=== PATIENT | male | born 1960 | race Caucasian/White ===

== ENCOUNTER 2018-11-11 10:32 | Inpatient (IN) | payer OTHER ==
[2018-11-10 15:37] VITALS: BMI 21.0
[~2018-11-11] VITALS: Ht 180.3 cm; Wt 76.1 kg
[~2018-11-11 10:32] MED LIST: CEFAZOLIN 2 GM/50 ML (PMX) 50 ML IVPB ONE; SOD CHLORIDE 0.9% 1,000 ML IV SCH
[2018-11-11] MEDS ORDERED: FOLI-49 PO (11:06)
[2018-11-11] MEDS ORDERED: IVAB5TAB PO (11:06)
[2018-11-11] MEDS ORDERED: DIGO125T PO (11:06)
[2018-11-11] MEDS ORDERED: ASPI-817 PO (11:06)
[2018-11-11] MEDS ORDERED: AMIO200T4 PO (11:06)
[2018-11-11] MEDS ORDERED: ATOR20TA65 PO (11:06)
[2018-11-11] MEDS ORDERED: FURO40TA4 PO (11:06)
[2018-11-11] MEDS ORDERED: CARV3.1260 PO (11:06)
[2018-11-11] MEDS ORDERED: MAGN400T27 PO (11:06)
[2018-11-11 11:07] VITALS: BP 104/58; PULSE 83; RESP 16
[2018-11-11] MEDS ORDERED: HYDROmorphONE 1 MG/ML SYG IV ONE (13:30)
[2018-11-11 17:20] VITALS: BP 115/69; PULSE 78; RESP 18
[2018-11-11] MEDS: LACTATED RINGER'S 1,000 ML IV SCH (18:02)
[2018-11-11] MEDS: morphine 4 MG/ML VIAL IV PRN ×2 (18:31→23:10)
[2018-11-11 19:15] VITALS: BP 95/61; PULSE 78; RESP 18
[2018-11-11] MEDS: MAGNESIUM OXIDE 400 MG TAB PO SCH (21:48)
[2018-11-11] MEDS: FOLIC ACID 1 MG TAB PO SCH (21:49)
[2018-11-11] MEDS: FUROSEMIDE 40 MG TAB PO SCH (21:50)
[2018-11-11] MEDS: AMIODARONE 200 MG TAB PO SCH (21:50)
[2018-11-11] MEDS: DIGOXIN 0.125 MG TAB PO SCH (21:54)
[2018-11-11] MEDS: IVABRADINE HCL 5 MG TABLET PO SCH (21:54)
[2018-11-12] VITALS (28 sets, daily range): BP systolic 75–102; BP diastolic 47–64; PULSE 72–83; RESP 10–20; Ht 180.3 cm; Wt 76.1 kg
[2018-11-12] MEDS: LACTATED RINGER'S 1,000 ML IV SCH ×2 (02:45→03:59)
[2018-11-12] MEDS: morphine 4 MG/ML VIAL IV PRN ×4 (04:03→22:16)
[2018-11-12] MEDS ORDERED: CEFAZOLIN 1 GM INJ ONE (07:00)
[2018-11-12] MEDS: FUROSEMIDE 40 MG TAB PO SCH (09:00)
[2018-11-12] MEDS: IVABRADINE HCL 5 MG TABLET PO SCH ×2 (09:00→21:00)
[2018-11-12] MEDS: AMIODARONE 200 MG TAB PO SCH (09:00)
[2018-11-12] MEDS: FOLIC ACID 1 MG TAB PO SCH (09:00)
[2018-11-12] MEDS: MAGNESIUM OXIDE 400 MG TAB PO SCH (09:00)
--- NOTE | 2018-11-12 12:24 | PREAC ---
Date/Time of Note Date/Time of Note DATE: 11/12/18 TIME: 12:21 Anesthesia Eval and Record Evaluation Time Pre-Procedure Interview DATE: 11/12/18 TIME: 12:21 Age 58 Sex male NPO: 8 hrs Preoperative diagnosis inguinal hernia right Planned procedure right hernia repair Past Medical History Past Medical History: Includes Cardio: PPM/AICD, CHF, Other (cardiomyopathy 25-30 % talked to Dr pologosstom for clearance, said its a big hernia, needs to br done) Surgery & Anesthesia Issues No known issue Meds Anticoagulation: No Beta Alisa within 24 hr: No Reason Beta Alisa not given: Pt. not on B-Alisa Reported Medications Ivabradine HCl (Corlanor) 5 Mg Tablet, 5 MG PO BID 11/11/18 Atorvastatin Calcium (Atorvastatin Calcium) 20 Mg Tablet, 20 MG PO QHS 11/11/18 Carvedilol* (Carvedilol*) 3.125 Mg Tablet, 3.125 MG PO BID 11/11/18 Furosemide* (Furosemide*) 40 Mg Tablet, 40 MG PO DAILY 11/11/18 Folic Acid* (Folic Acid*) 1 Mg Tablet, 1 MG PO DAILY 11/11/18 Digoxin* (Digitek*) 125 Mcg Tablet, 0.125 MG PO DAILY 11/11/18 Magnesium Oxide* (Mag-Oxide*) 400 Mg Tablet, 400 MG PO DAILY 11/11/18 Amiodarone Hcl* (Amiodarone Hcl*) 200 Mg Tablet, 200 MG PO DAILY 11/11/18 Discontinued Reported Medications Aspirin* (Aspirin* EC) 81 Mg Tablet.dr 81 MG PO DAILY 11/11/18 Current Medications Lactated Ringer's 1,000 ml @ 100 mls/hr Q10H IV Last administered on 11/12/18at 03:59; Admin Dose 100 MLS/HR; Start 11/11/18 at 16:45 Morphine Sulfate (morphine) 4 mg Q4H PRN IV severe pain 7-10 Last administered on 11/12/18at 08:10; Admin Dose 4 MG; Start 11/11/18 at 18:00 Amiodarone HCl (Cordarone) 200 mg DAILY PO Last administered on 11/11/18at 21:50; Admin Dose 200 MG; Start 11/11/18 at 20:30 Folic Acid (Folic Acid) 1 mg DAILY PO Last administered on 11/11/18at 21:49; Admin Dose 1 MG; Start 11/11/18 at 20:30 Furosemide (Lasix) 40 mg DAILY PO Last administered on 11/11/18at 21:50; Admin Dose 40 MG; Start 11/11/18 at 20:30 Magnesium Oxide (Mag-Ox 400) 400 mg DAILY PO Last administered on 11/11/18at 21:48; Admin Dose 400 MG; Start 11/11/18 at 20:30 Ivabradine (Corlanor) 5 mg BID PO ; Start 11/11/18 at 22:00 Digoxin (Digoxin) 0.125 mg DAILY@1300 PO ; Start 11/11/18 at 22:00 Meds reviewed: Yes Allergies Coded Allergies: No Known Allergy (Unverified , 11/11/18) Allergies Reviewed: Yes Labs/Studies Labs Reviewed: Reviewed by anesthesiologist Result Diagram: 11/11/18 1110 11/11/18 1110 test: N/A Studies: ECG (sb, first degree block AICD) Pre-procedure Exam Last vitals Vital Signs Date Temp Pulse Resp B/P (MAP) Pulse Ox O2 O2 Flow FiO2 Time Delivery Rate 11/12/18 98.2 76 16 95/57 (70) 100 Room Air 07:37 Airway: Adequate mouth opening Mallampati: Mallampati I Teeth: Normal Lung: Normal Heart: Normal ASA Physical Status ASA physical status: 3 Emergency: None Planned Anesthetic General/MAC: ETT Planned Pain Management Single shot nerve block Pre-operative Attestations Prior to commencing anesthesia and surgery, the patient was re-evaluated, there was verification of: *The patient's identity *The results of appropriate recent lab work and preoperative vital signs *The above evaluation not changing prior to induction *Anesthetic plan, risk benefits, alternative and complications discussed with patient/family; questions answered; patient/family understands, accepts and wishes to proceed. RIANA GARCIA MD Nov 12, 2018 12:24
[2018-11-12] MEDS ORDERED: MEPERIDINE 25 MG INJ IV PRN (12:30)
[2018-11-12] MEDS ORDERED: LABETALOL HCL 20MG INJ IV PRN (12:30)
[2018-11-12] MEDS ORDERED: hydrALAzine 20 MG INJ IV PRN (12:30)
[2018-11-12] MEDS ORDERED: EPHEDrine SULFATE 50 MG/5 ML SYG IV PRN (12:30)
[2018-11-12] MEDS ORDERED: DIPHENHYDRAMINE 50 MG INJ IV PRN (12:30)
[2018-11-12] MEDS ORDERED: ONDANSETRON 4 MG INJ IV PRN (12:30)
[2018-11-12] MEDS ORDERED: HYDROmorphONE 1 MG/5 ML IV SYRINGE IV PRN ×3 (12:30)
[2018-11-12] MEDS ORDERED: ROCURONIUM 50 MG INJ ONE ×2 (12:47→13:29)
[2018-11-12] MEDS ORDERED: MIDAZOLAM 1 MG/ML 2 ML INJ ONE (12:47)
[2018-11-12] MEDS ORDERED: METOCLOPRAMIDE 10 MG INJ ONE (12:47)
[2018-11-12] MEDS ORDERED: ROPIVACAINE 0.2% 20 ML VIAL ONE (12:47)
[2018-11-12] MEDS ORDERED: ONDANSETRON 4 MG INJ ONE (12:47)
[2018-11-12] MEDS ORDERED: ETOMIDATE 20 MG INJ ONE (12:47)
[2018-11-12] MEDS ORDERED: FENTAnyl 50 MCG/ML VIAL ONE (12:47)
[2018-11-12] MEDS ORDERED: PHENYLephrine 10 MG INJ ONE (12:54)
[2018-11-12] MEDS ORDERED: LIDOCAINE 1% (MPF) 30 ML INJ ONE (14:28)
[2018-11-12] MEDS ORDERED: POLYMYXIN/BACITRACIN 1L IRRIG ONE (14:28)
[2018-11-12] MEDS ORDERED: KETOROLAC 30 MG INJ ONE (14:46)
[2018-11-12] MEDS ORDERED: GLYCOPYRROLATE 0.4 MG INJ ONE (14:46)
[2018-11-12] MEDS ORDERED: NEOSTIGMINE 3 MG/3 ML SYRINGE ONE (14:46)
--- NOTE | 2018-11-12 15:34 | OPR ---
Date/Time of Note Date/Time of Note DATE: 11/12/18 TIME: 15:32 Operative Report Procedure Date: Nov 12, 2018 Preoperative Diagnosis right inguinal hernia, incarcerated, very large Postoperative Diagnosis same, encroachment into dartos fascia and panpiniform plexus Operation/Procedure Performed right inguinal hernia repair with mesh, incarcerated without obstruction removal of spermatic cord lesion reconstruction of scrotum Surgeon see signature line Speech Communication Professor none Anesthesia Type: general Estimated Blood Loss: 10 - 50 ml's Transfusion none Specimen lipoma of the cord Grafts/Implants prolene plug mesh and macroporous prolene soft mesh Complications none Pt Condition Post Procedure: guarded Disposition: PACU Indications Patient with a very large inguinal hernia at the right side that has been causing progressively worsening pain and discomfort. He has a history of CHF and due to his cardiac risks has been putting off surgery for a long time but the pain is getting severe and he would now like to have it repaired. Procedure Description The patient was laid supine on the operating room table. Venodyne boots were applied. Timeout was conducted. Antibiotics were administered. The groin was prepped and draped in sterile manner. A 7 cm incision was made along the skin lines 2[address] distally from the anterior superior iliac spine to the patient's pubic tubercle on the right side. The incision was made with a scalpel and then deepened with cautery through Camper's and Pablito's fascia until the external oblique aponeurosis was encountered. A rubia was made along the center of the external oblique upon neurosis with the blade and thereafter the Metzenbaum scissors were used to open the external ring from the pubic tubercle up towards the anterior superior iliac spine. The ilioinguinal nerve was identified and moved out of the operative field sway. The surgeon then used blunt dissection with a sponge stick to isolate the cord structures from surrounding fascia and thereafter encircled the cord structures with a Cecelia drain. The Cecelia drain was used to retract the cord structures and the ileal inguinal nerve out of the operative field. The cord was examined and along the lipoma was noted. Excision of lipoma of the cord was carried out. The hernia sac was then identified and noted to be adherent to the cremasteric fibers and the spermatic cord. The pimpiniform plexus was also adhered to it and a few branches had to be sacrificied by ligating it in order to safely resect it off of the hernia sac. The hernia sac distally was stuck in the scrotum and therefore Darto's fascia had to be incised from the groin in order to allow for reduction of the hernia out of the sac. Using electrocautery the hernia sac was dissected away from the cord structures. The hernia sac was thereafter opened and inspected there was no bowel or anything suspicious inside it. All hernia sac content was reduced back into the peritoneum and thereafter high ligation of the sac was carried out with a 0 silk suture and the hernia sac was reduced into the peritoneal cavity. The fascia was then inspected and dressed lateral to the epigastric vessels a indirect hernia defect was identified. The fascial defect was closed with interrupted 0 Vicryl sutures and reinforced with a Prolene plug mesh. Interrupted Vicryl sutures were used to affix the petals of the plug to the inner surface of the conjoint tendon at the area of the fascial defect. Once the fascial defect was closed patch mesh was brought onto the field. This was a macroporous Vicryl mesh and it was cut to appropriate size. The medial edge of the mesh was affixed to the patient's right pubic periosteum about 1 cm to the area of the tubercle. Afterwards a running 0 Vicryl suture was used to affix the superior edge of the mesh to the patient's conjoint tendon from the pubic tubercle laterally toward the anterior superior iliac spine. A second V icryl suture was then used to affix the patch mesh to the shelving edge of the ileal inguinal ligament from the area of the pubic tubercle toward the anterior superior iliac spine using running 0 Vicryl suture. The spermatic cord was placed in between the 2 fish tails of the patch mesh and the 2 fishtails were thereafter affixed to each other using an interrupted suture taking care to ensure there is no impingement upon the spermatic cord. Given the large size of the hernia, it was noted to be impinging along the Dartos fascia. The Darto's fascia was incised and it now had to be again closed. 2-0 Vicryl sutures were used to reconstruct the scrotum in two layers by reapproximating Darto's fascia and great care was taken to ensure cord structures were not entrapped. The wound was then irrigated with saline. The cord structures and ilioinguinal nerve were then placed back into their anatomic position. The external oblique fascia was thereafter reapproximated using running 0 Vicryl suture. The subcutaneous t issue was then reapproximated using 2-0 Vicryl sutures. The skin was then closed with 4-0 Monocryl and Dermabond dressing was applied after wet and dry dressings were applied to the wound. At the end of the procedure I confirmed that the patient's testicles are in the appropriate position. The patient was after weaned from anesthesia and disposition to the postanesthesia care unit in stable condition. All instrument and needle and sponge counts were correct at the end of the procedure 2. PETRA WOLFF Nov 12, 2018 15:34
[2018-11-12] MEDS ORDERED: HYDROmorphONE 1 MG/ML SYG IV PRN (16:00)
[2018-11-12] MEDS ORDERED: EPHEDrine 25 MG/5 ML SYG IV PRN (16:30)
[2018-11-12] MEDS: DIGOXIN 0.125 MG TAB PO SCH (18:15)
--- NOTE | 2018-11-12 18:38 | HP ---
Date/Time of Note Date/Time of Note DATE: 11/12/18 TIME: 18:36 Assessment/Plan VTE Prophylaxis Risk score (from Nsg)>0 risk: 3 SCD applied (from Nsg): Yes Lines/Catheters IV Catheter Type (from Nrsg): Peripheral IV Assessment/Plan Assessment/Plan right inguinal hernia, incarcerated, very large right inguinal hernia repair with mesh, incarcerated without obstruction sp ICD Placement Result Diagram: 11/11/18 11111/11/18 1110 HPI/ROS Admit Date/Time Admit Date/Time Nov 11, 2018 at 10:32 PMH/Family/Social Past Medical History Medical History: congestive heart failure Medications Current Medications Lactated Ringer's 1,000 ml @ 100 mls/hr Q10H IV Last administered on 11/12/18at 03:59; Admin Dose 100 MLS/HR; Start 11/11/18 at 16:45 Morphine Sulfate (morphine) 4 mg Q4H PRN IV severe pain 7-10 Last administered on 11/12/18 18:16; Admin Dose 4 MG; Start 11/11/18 at 18:00 Amiodarone HCl (Cordarone) 200 mg DAILY PO Last administered on 11/11/18 21:50; Admin Dose 200 MG; Start 11/11/18 at 20:30 Folic Acid (Folic Acid) 1 mg DAILY PO Last administered on 11/11/18 21:49; Admin Dose 1 MG; Start 11/11/18 at 20:30 Furosemide (Lasix) 40 mg DAILY PO Last administered on 11/11/18 21:50; Admin Dose 40 MG; Start 11/11/18 at 20:30 Magnesium Oxide (Mag-Ox 400) 400 mg DAILY PO Last administered on 11/11/18at 21:48; Admin Dose 400 MG; Start 11/11/18 at 20:30 Ivabradine (Corlanor) 5 mg BID PO ; Start 11/11/18 at 22:00 Digoxin (Digoxin) 0.125 mg DAILY@1300 PO Last administered on 11/12/18 18:15; Admin Dose 0.125 MG; Start 11/11/18 at 22:00 Acetaminophen/ Hydrocodone Bitart ([place] (5/325)) 1 tab Q4H PRN PO MODERATE PAIN LEVEL 4-6; Start 11/12/18 at 16:00 Acetaminophen/ Hydrocodone Bitart ([place] (10/325)) 1 tab Q4H PRN PO MODERATE PAIN LEVEL 4-6; Start 11/12/18 at 16:00 Hydromorphone HCl (Dilaudid) 1 mg Q4H PRN IV SEVERE PAIN LEVEL 7-10; Start 11/12/18 at 16:00 Ephedrine Sulfate 5 mg PACU ORDER PRN IV BLOOD PRESSURE SUPPORT Last administered on 11/12/18at 16:18; Admin Dose 5 MG; Start 11/12/18 at 16:30; Stop 11/12/18 at 22:00 Atorvastatin Calcium (Lipitor) 20 mg QHS PO ; Start 11/12/18 at 21:00; Status UNV Coded Allergies: No Known Allergy (Unverified , 11/11/18) Past Surgical History Past Surgical Hx: other (sp ICD PLACEMENT) Social History Smoking Status: Former smoker Exam/Review of Systems Vital Signs Vitals Vital Signs Date Temp Pulse Resp B/P (MAP) Pulse Ox O2 O2 Flow FiO2 Time Delivery Rate 11/12/18 98.2 78 20 92/52 (65) 95 Nasal 2.0 18:02 Cannula Intake and Output 11/11/18 11/11/18 11/12/18 1414:59 22:59 06:59 IntakeIntake Total 1100 ml 1340 ml OutputOutput Total 1 ml BalanceBalance 1100 ml 1339 ml Exam Constitutional: alert Psych: nl mood/affect Head: atraumatic Eyes: EOMI ENMT: nl external ears & nose Respiratory: diminished breath sounds Cardiovascular: nl pulses, other Gastrointestinal: nl liver, spleen, non-tender Musculoskeletal: nl extremities to inspection MARY LOU MURRIETA Nov 12, 2018 18:38
[2018-11-12] MEDS: ATORVASTATIN 20 MG TAB PO SCH (20:36)
[2018-11-13] VITALS (12 sets, daily range): BP systolic 90–102; BP diastolic 50–64; PULSE 84–100; RESP 18–20
[2018-11-13] MEDS: morphine 4 MG/ML VIAL IV PRN ×6 (02:22→22:28)
--- NOTE | 2018-11-13 07:13 | PAC ---
Date/Time of Note Date/Time of Note DATE: 11/13/18 TIME: 07:12 Post-Anesthesia Notes Post-Anesthesia Note Last documented vital signs Vital Signs Date Temp Pulse Resp B/P (MAP) Pulse Ox O2 O2 Flow FiO2 Time Delivery Rate 11/13/18 98.4 88 18 96/57 (70) 96 04:35 11/12/18 Nasal 2.0 18:02 Cannula Activity: WNL Respiratory function: WNL Cardiovascular function: WNL Mental status: Baseline Pain reasonably controlled: Yes Hydration appropriate: Yes Nausea/Vomiting absent: No RIANA GARCIA MD Nov 13, 2018 07:13
[2018-11-13] MEDS: FOLIC ACID 1 MG TAB PO SCH (08:36)
[2018-11-13] MEDS: IVABRADINE HCL 5 MG TABLET PO SCH ×2 (08:36→21:10)
[2018-11-13] MEDS: MAGNESIUM OXIDE 400 MG TAB PO SCH (08:36)
[2018-11-13] MEDS: FUROSEMIDE 40 MG TAB PO SCH (08:36)
[2018-11-13] MEDS: AMIODARONE 200 MG TAB PO SCH (08:37)
[2018-11-13] MEDS: HYDROCODONE/APAP (10/325) TAB PO PRN ×3 (11:34→21:10)
[2018-11-13] MEDS: DIGOXIN 0.125 MG TAB PO SCH (12:19)
[2018-11-13] MEDS: DOCUSATE SODIUM 100 MG CAP PO SCH (21:10)
[2018-11-13] MEDS: ATORVASTATIN 20 MG TAB PO SCH (21:10)
[2018-11-14] VITALS (11 sets, daily range): BP systolic 95–115; BP diastolic 51–67; PULSE 80–92; RESP 18–21
[2018-11-14] MEDS: morphine 4 MG/ML VIAL IV PRN ×4 (03:44→18:25)
[2018-11-14] MEDS: HYDROCODONE/APAP (10/325) TAB PO PRN ×2 (06:55→12:11)
[2018-11-14] MEDS: FUROSEMIDE 40 MG TAB PO SCH (08:26)
[2018-11-14] MEDS: MAGNESIUM OXIDE 400 MG TAB PO SCH (08:32)
[2018-11-14] MEDS: FOLIC ACID 1 MG TAB PO SCH (08:32)
[2018-11-14] MEDS: DOCUSATE SODIUM 100 MG CAP PO SCH ×2 (08:32→21:36)
[2018-11-14] MEDS: IVABRADINE HCL 5 MG TABLET PO SCH ×2 (08:33→21:36)
[2018-11-14] MEDS: AMIODARONE 200 MG TAB PO SCH (08:33)
[2018-11-14] MEDS: DIGOXIN 0.125 MG TAB PO SCH (12:12)
--- NOTE | 2018-11-14 18:26 | PN ---
Date/Time of Note Date/Time of Note DATE: 11/14/18 TIME: 18:24 Assessment/Plan VTE Prophylaxis Risk score (from Nsg)>0 risk: 1 SCD applied (from Nsg): Yes Pharmacological prophylaxis: NA/contraindicated Pharm contraindication: surgical contra Lines/Catheters IV Catheter Type (from Nrsg): Saline Lock Assessment/Plan Hospital Course Patient complains of pain, continues [place] and morphine as needed for breakthrough pain, patient was able to move to the chair with RN help, Continue current care, will obtain PT evaluation. Assessment/Plan - Large incarcerated right inguinal hernia, status post right inguinal hernia repair with mesh, removal of spermatic cord cord lesion and reconstruction of scrotum by Dr. Villalobos. Continue [place] and morphine as needed for pain and Zofran as needed for nausea. -Congestive heart failure, continue Lasix and Coreg -Status post recent permanent pacemaker insertion by Dr. Alba -Hyperlipidemia, continue statin Further recommendations based on clinical course. Plan of care discussed with Dr. Mckay. Result Diagram: 11/14/18 0520 11/14/18 0520 Results 24hrs Laboratory Tests Test 11/14/18 05:20 White Blood Count 9.9 # Red Blood Count 3.71 L Hemoglobin 10.9 L Hematocrit 34.6 L Mean Corpuscular Volume 93.3 Mean Corpuscular Hemoglobin 29.4 Mean Corpuscular Hemoglobin Concent 31.5 L Red Cell Distribution Width 16.7 H Platelet Count 241 Mean Platelet Volume 8.6 Immature Granulocytes % 0.500 H Neutrophils % 75.6 Lymphocytes % 9.0 L Monocytes % 13.3 H Eosinophils % 1.1 Basophils % 0.5 Nucleated Red Blood Cells % 0.0 Immature Granulocytes # 0.050 H Neutrophils # 7.5 Lymphocytes # 0.9 Monocytes # 1.3 H Eosinophils # 0.1 Basophils # 0.1 Nucleated Red Blood Cells # 0.0 Sodium Level 137 Potassium Level 4.3 Chloride Level 97 Carbon Dioxide Level 25 Anion Gap 15 #H Blood Urea Nitrogen 19 Creatinine 0.99 Est Glomerular Filtrat Rate mL/min > 60 Glucose Level 97 Calcium Level 8.5 Exam/Review of Systems Exam Vitals Vital Signs Date Temp Pulse Resp B/P (MAP) Pulse Ox O2 O2 Flow FiO2 Time Delivery Rate 11/14/18 84 16:01 11/14/18 98.4 20 97/54 (68) 95 15:53 11/12/18 Nasal 2.0 18:02 Cannula Intake and Output 11/13/18 11/13/18 11/14/18 1515:00 23:00 07:00 IntakeIntake Total 700 ml 450 ml OutputOutput Total 450 ml 1200 ml BalanceBalance 250 ml -750 ml Constitutional: alert, oriented Respiratory: clear to auscultation Cardiovascular: regular rate and rhythm, other (Left chest PPM) Gastrointestinal: soft, non-tender Genitourinary - Male: other (Status post right inguinal hernia repair) Extremities: normal pulses Neurological: nl mental status Skin: nl turgor Results Results 24hrs Laboratory Tests Test 11/14/18 05:20 White Blood Count 9.9 # Red Blood Count 3.71 L Hemoglobin 10.9 L Hematocrit 34.6 L Mean Corpuscular Volume 93.3 Mean Corpuscular Hemoglobin 29.4 Mean Corpuscular Hemoglobin Concent 31.5 L Red Cell Distribution Width 16.7 H Platelet Count 241 Mean Platelet Volume 8.6 Immature Granulocytes % 0.500 H Neutrophils % 75.6 Lymphocytes % 9.0 L Monocytes % 13.3 H Eosinophils % 1.1 Basophils % 0.5 Nucleated Red Blood Cells % 0.0 Immature Granulocytes # 0.050 H Neutrophils # 7.5 Lymphocytes # 0.9 Monocytes # 1.3 H Eosinophils # 0.1 Basophils # 0.1 Nucleated Red Blood Cells # 0.0 Sodium Level 137 Potassium Level 4.3 Chloride Level 97 Carbon Dioxide Level 25 Anion Gap 15 #H Blood Urea Nitrogen 19 Creatinine 0.99 Est Glomerular Filtrat Rate mL/min > 60 Glucose Level 97 Calcium Level 8.5 Medications Medication Current Medications Morphine Sulfate (morphine) 4 mg Q4H PRN IV severe pain 7-10 Last administered on 11/14/18at 14:28; Admin Dose 4 MG; Start 11/11/18 at 18:00 Amiodarone HCl (Cordarone) 200 mg DAILY PO Last administered on 11/14/18at 08:33; Admin Dose 200 MG; Start 11/11/18 at 20:30 Folic Acid (Folic Acid) 1 mg DAILY PO Last administered on 11/14/18at 08:32; Admin Dose 1 MG; Start 11/11/18 at 20:30 Magnesium Oxide (Mag-Ox 400) 400 mg DAILY PO Last administered on 11/14/18 08:32; Admin Dose 400 MG; Start 11/11/18 at 20:30 Ivabradine (Corlanor) 5 mg BID PO Last administered on 11/14/18 08:33; Admin Dose 5 MG; Start 11/11/18 at 22:00 Digoxin (Digoxin) 0.125 mg DAILY@1300 PO Last administered on 11/14/18 12:12; Admin Dose 0.125 MG; Start 11/11/18 at 22:00 Acetaminophen/ Hydrocodone Bitart ([place] (5/325)) 1 tab Q4H PRN PO MODERATE PAIN LEVEL 4-6; Start 11/12/18 at 16:00 Acetaminophen/ Hydrocodone Bitart ([place] (10/325)) 1 tab Q4H PRN PO MODERATE PAIN LEVEL 4-6 Last administered on 11/14/18 12:11; Admin Dose 1 TAB; Start 11/12/18 at 16:00 Hydromorphone HCl (Dilaudid) 1 mg Q4H PRN IV SEVERE PAIN LEVEL 7-10; Start 11/12/18 at 16:00 Atorvastatin Calcium (Lipitor) 20 mg QHS PO Last administered on 11/13/18 21:10; Admin Dose 20 MG; Start 11/12/18 at 21:00 Miscellaneous Information Patients own medicat... BID@10,16 XX ; Start 11/13/18 at 10:00 Furosemide (Lasix) 40 mg DAILY PO ; Start 11/14/18 at 09:00 Docusate Sodium (Colace) 100 mg BID PO Last administered on 11/14/18 08:32; Admin Dose 100 MG; Start 11/13/18 at 21:00 JOSE ANDREW Nov 14, 2018 18:25
[2018-11-14] MEDS: ATORVASTATIN 20 MG TAB PO SCH (21:36)
[2018-11-14] MEDS: LORAZEPAM 2 MG INJ IV PRN (23:44)
[2018-11-15] VITALS (10 sets, daily range): BP systolic 97–113; BP diastolic 58–68; PULSE 79–95; RESP 18–20
[2018-11-15] MEDS: HYDROmorphONE 2 MG/ML SYG IV PRN ×3 (07:22→18:33)
[2018-11-15] MEDS: FOLIC ACID 1 MG TAB PO SCH (08:14)
[2018-11-15] MEDS: MAGNESIUM OXIDE 400 MG TAB PO SCH (08:14)
[2018-11-15] MEDS: DOCUSATE SODIUM 100 MG CAP PO SCH ×2 (08:14→20:35)
[2018-11-15] MEDS: IVABRADINE HCL 5 MG TABLET PO SCH ×2 (08:14→20:35)
[2018-11-15] MEDS: AMIODARONE 200 MG TAB PO SCH (08:15)
[2018-11-15] MEDS: FUROSEMIDE 40 MG TAB PO SCH (08:15)
[2018-11-15] MEDS: morphine 4 MG/ML VIAL IV PRN (10:20)
[2018-11-15] MEDS: BISACODYL (EC) 5 MG TAB PO PRN (10:50)
--- NOTE | 2018-11-15 11:01 | PN ---
Date/Time of Note Date/Time of Note DATE: 11/15/18 TIME: 10:56 Assessment/Plan VTE Prophylaxis Risk score (from Ns)>0 risk: 2 SCD applied (from Ns): Yes Pharmacological prophylaxis: NA/contraindicated Pharm contraindication: surgical contra Lines/Catheters IV Catheter Type (from Nrs): Saline Lock Assessment/Plan Hospital Course Patient with slightly elevated white blood cells will obtain chest x-ray and urinalysis, patient still with great amount of pain continue [place] and morphine for breakthrough pain. Patient's complaints of constipation will start patient on bowel regimen. 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 Assessment/Plan - Large incarcerated right inguinal hernia, status post right inguinal hernia repair with mesh, removal of spermatic cord cord lesion and reconstruction of scrotum by Dr. Villalobos. Continue [place] and morphine as needed for pain and Zofran as needed for nausea. -Congestive heart failure, continue Lasix and Coreg -Status post recent permanent pacemaker insertion by Dr. Alba -Hyperlipidemia, continue statin Further recommendations based on clinical course. Plan of care discussed with Dr. Mckay. Result Diagram: 11/15/1851211/15/18512 Results 24hrs Laboratory Tests Test 11/15/18 05:13 White Blood Count 11.7 H Red Blood Count 3.62 L Hemoglobin 10.6 L Hematocrit 34.0 L Mean Corpuscular Volume 93.9 Mean Corpuscular Hemoglobin 29.3 Mean Corpuscular Hemoglobin Concent 31.2 L Red Cell Distribution Width 16.5 H Platelet Count 233 Mean Platelet Volume 8.7 Immature Granulocytes % 0.500 H Neutrophils % 78.7 H Lymphocytes % 7.9 L Monocytes % 11.9 H Eosinophils % 0.7 Basophils % 0.3 Nucleated Red Blood Cells % 0.0 Immature Granulocytes # 0.060 H Neutrophils # 9.2 H Lymphocytes # 0.9 Monocytes # 1.4 H Eosinophils # 0.1 Basophils # 0.0 Nucleated Red Blood Cells # 0.0 Sodium Level 133 L Potassium Level 4.3 Chloride Level 99 Carbon Dioxide Level 29 Anion Gap 5 # Blood Urea Nitrogen 16 Creatinine 0.93 Est Glomerular Filtrat Rate mL/min > 60 Glucose Level 88 Calcium Level 8.6 Exam/Review of Systems Exam Vitals Vital Signs Date Temp Pulse Resp B/P (MAP) Pulse Ox O2 O2 Flow FiO2 Time Delivery Rate 11/15/18 92 08:01 11/15/18 98.9 20 113/62 93 07:23 (79) 11/12/18 Nasal 2.0 18:02 Cannula Intake and Output 11/14/18 11/14/18 11/15/18 1515:00 23:00 07:00 IntakeIntake Total 1200 ml 500 ml OutputOutput Total 750 ml 600 ml BalanceBalance 450 ml -100 ml Exam Constitutional: alert, oriented Respiratory: clear to auscultation Cardiovascular: regular rate and rhythm, other (Left chest PPM) Gastrointestinal: soft, non-tender Genitourinary - Male: other (Status post right inguinal hernia repair) Extremities: normal pulses Neurological: nl mental status Skin: nl turgor Results Results 24hrs Laboratory Tests Test 11/15/18 05:13 White Blood Count 11.7 H Red Blood Count 3.62 L Hemoglobin 10.6 L Hematocrit 34.0 L Mean Corpuscular Volume 93.9 Mean Corpuscular Hemoglobin 29.3 Mean Corpuscular Hemoglobin Concent 31.2 L Red Cell Distribution Width 16.5 H Platelet Count 233 Mean Platelet Volume 8.7 Immature Granulocytes % 0.500 H Neutrophils % 78.7 H Lymphocytes % 7.9 L Monocytes % 11.9 H Eosinophils % 0.7 Basophils % 0.3 Nucleated Red Blood Cells % 0.0 Immature Granulocytes # 0.060 H Neutrophils # 9.2 H Lymphocytes # 0.9 Monocytes # 1.4 H Eosinophils # 0.1 Basophils # 0.0 Nucleated Red Blood Cells # 0.0 Sodium Level 133 L Potassium Level 4.3 Chloride Level 99 Carbon Dioxide Level 29 Anion Gap 5 # Blood Urea Nitrogen 16 Creatinine 0.93 Est Glomerular Filtrat Rate mL/min > 60 Glucose Level 88 Calcium Level 8.6 Medications Medication Current Medications Morphine Sulfate (morphine) 4 mg Q4H PRN IV severe pain 7-10 Last administered on 11/15/18at 10:20; Admin Dose 4 MG; Start 11/11/18 at 18:00 Amiodarone HCl (Cordarone) 200 mg DAILY PO Last administered on 11/15/18at 08:15; Admin Dose 200 MG; Start 11/11/18 at 20:30 Folic Acid (Folic Acid) 1 mg DAILY PO Last administered on 11/15/18at 08:14; Admin Dose 1 MG; Start 11/11/18 at 20:30 Magnesium Oxide (Mag-Ox 400) 400 mg DAILY PO Last administered on 11/15/18 08:14; Admin Dose 400 MG; Start 11/11/18 at 20:30 Ivabradine (Corlanor) 5 mg BID PO Last administered on 11/15/18 08:14; Admin Dose 5 MG; Start 11/11/18 at 22:00 Digoxin (Digoxin) 0.125 mg DAILY@1300 PO Last administered on 11/14/18 12:12; Admin Dose 0.125 MG; Start 11/11/18 at 22:00 Acetaminophen/ Hydrocodone Bitart ([place] (5/325)) 1 tab Q4H PRN PO MODERATE PAIN LEVEL 4-6; Start 11/12/18 at 16:00 Acetaminophen/ Hydrocodone Bitart ([place] (10/325)) 1 tab Q4H PRN PO MODERATE PAIN LEVEL 4-6 Last administered on 11/14/18 12:11; Admin Dose 1 TAB; Start 11/12/18 at 16:00 Atorvastatin Calcium (Lipitor) 20 mg QHS PO Last administered on 11/14/18 21:36; Admin Dose 20 MG; Start 11/12/18 at 21:00 Miscellaneous Information Patients own medicat... BID@10,16 XX ; Start 11/13/18 at 10:00 Furosemide (Lasix) 40 mg DAILY PO Last administered on 11/15/18 08:15; Admin Dose 40 MG; Start 11/14/18 at 09:00 Docusate Sodium (Colace) 100 mg BID PO Last administered on 11/15/18 08:14; Admin Dose 100 MG; Start 11/13/18 at 21:00 Hydromorphone HCl (Dilaudid) 1.5 mg Q4H PRN IV SEVERE PAIN LEVEL 7-10 Last administered on 11/15/18 07:22; Admin Dose 1.5 MG; Start 11/15/18 at 00:00 Lorazepam (Ativan) 1 mg Q4 PRN IV AGITATION/ANXIETY Last administered on 11/14/18 23:44; Admin Dose 1 MG; Start 11/14/18 at 23:00 Bisacodyl (Dulcolax) 10 mg DAILY PRN PO CONSTIPATION Last administered on 2/19/19at 10:50; Admin Dose 10 MG; Start 11/15/18 at 10:30 JOSE ANDREW Nov 15, 2018 11:01
--- NOTE | 2018-11-15 13:58 | QN ---
Documentation Comment Patient with a lot of pain and right scrotal swelling as expected given size of hernia and extent of repair. We will send down to radiology for ultrasound-guided aspiration of right scrotal seroma for pain relief. Continue physical therapy and pain management per medicine. PETRA WOLFF Nov 15, 2018 13:58
[2018-11-15] MEDS: DIGOXIN 0.125 MG TAB PO SCH (14:24)
[2018-11-15] MEDS: HYDROCODONE/APAP (10/325) TAB PO PRN (17:48)
[2018-11-15] MEDS: ATORVASTATIN 20 MG TAB PO SCH (20:35)
[2018-11-15] MEDS: LORAZEPAM 2 MG INJ IV PRN (20:39)
[2018-11-16] VITALS (12 sets, daily range): BP systolic 90–120; BP diastolic 56–68; PULSE 74–96; RESP 16–18
[2018-11-16] MEDS: HYDROmorphONE 2 MG/ML SYG IV PRN ×4 (00:31→20:15)
[2018-11-16] MEDS: LORAZEPAM 2 MG INJ IV PRN (06:17)
[2018-11-16] MEDS: IVABRADINE HCL 5 MG TABLET PO SCH ×2 (09:07→20:07)
[2018-11-16] MEDS: DOCUSATE SODIUM 100 MG CAP PO SCH ×2 (09:07→20:07)
[2018-11-16] MEDS: MAGNESIUM OXIDE 400 MG TAB PO SCH (09:08)
[2018-11-16] MEDS: AMIODARONE 200 MG TAB PO SCH (09:08)
[2018-11-16] MEDS: FUROSEMIDE 40 MG TAB PO SCH (09:08)
[2018-11-16] MEDS: FOLIC ACID 1 MG TAB PO SCH (09:08)
--- NOTE | 2018-11-16 12:16 | PN ---
Date/Time of Note Date/Time of Note DATE: 11/16/18 TIME: 12:06 Assessment/Plan VTE Prophylaxis Risk score (from Nsg)>0 risk: 2 SCD applied (from Nsg): Yes SCD contraindicated: low risk/ambulating Pharmacological prophylaxis: NA/contraindicated Pharm contraindication: surgical contra Lines/Catheters IV Catheter Type (from Nrsg): Saline Lock Assessment/Plan Hospital Course Patient with pain in the scrotal swelling, patient will benefit from utrasound- guided aspiration of right scrotal seroma for pain relief, will obtain urology consult Dr Ortiz. Patient is anxious at times with unstable gait per PT assessment, continue close monitoring and physical therapy. Assessment/Plan - Large incarcerated right inguinal hernia, status post right inguinal hernia repair with mesh, removal of spermatic cord cord lesion and reconstruction of scrotum by Dr. Villalobos. Continue [place] and morphine as needed for pain and Zofran as needed for nausea. -Congestive heart failure, continue Lasix and Coreg -Status post recent permanent pacemaker insertion by Dr. Alba -Hyperlipidemia, continue statin Further recommendations based on clinical course. Plan of care discussed with Dr. Mckay. Result Diagram: 11/15/1851211/15/18512 Results 24hrs Laboratory Tests Test 11/15/18 23:30 Urine Color NEENA Urine Clarity CLEAR Urine pH 5.0 Urine Specific [place] 1.024 Urine Ketones NEGATIVE Urine Nitrite NEGATIVE Urine Bilirubin NEGATIVE Urine Urobilinogen 1+ H Urine Leukocyte Esterase 2+ H Urine Microscopic RBC 3 Urine Microscopic WBC 7 H Urine Mucus FEW A Urine Hemoglobin NEGATIVE Urine Glucose NEGATIVE Urine Total Protein NEGATIVE Exam/Review of Systems Exam Vitals Vital Signs Date Temp Pulse Resp B/P (MAP) Pulse Ox O2 O2 Flow FiO2 Time Delivery Rate 11/16/18 85 12:01 11/16/18 98.1 16 120/68 97 11:32 (85) 11/12/18 Nasal 2.0 18:02 Cannula Intake and Output 11/15/18 11/15/18 11/16/18 1515:00 23:00 07:00 IntakeIntake Total 530 ml 350 ml OutputOutput Total 400 ml BalanceBalance 530 ml -50 ml Exam Constitutional: alert, oriented Respiratory: clear to auscultation Cardiovascular: regular rate and rhythm, other (Left chest PPM) Gastrointestinal: soft, non-tender Genitourinary - Male: other (Status post right inguinal hernia repair) Extremities: normal pulses Neurological: nl mental status Skin: nl turgor Results Results 24hrs Laboratory Tests Test 11/15/18 23:30 Urine Color NEENA Urine Clarity CLEAR Urine pH 5.0 Urine Specific [place] 1.024 Urine Ketones NEGATIVE Urine Nitrite NEGATIVE Urine Bilirubin NEGATIVE Urine Urobilinogen 1+ H Urine Leukocyte Esterase 2+ H Urine Microscopic RBC 3 Urine Microscopic WBC 7 H Urine Mucus FEW A Urine Hemoglobin NEGATIVE Urine Glucose NEGATIVE Urine Total Protein NEGATIVE Medications Medication Current Medications Morphine Sulfate (morphine) 4 mg Q4H PRN IV severe pain 7-10 Last administered on 11/15/18 10:20; Admin Dose 4 MG; Start 11/11/18 at 18:00 Amiodarone HCl (Cordarone) 200 mg DAILY PO Last administered on 11/16/18 09:08; Admin Dose 200 MG; Start 11/11/18 at 20:30 Folic Acid (Folic Acid) 1 mg DAILY PO Last administered on 11/16/18 09:08; Admin Dose 1 MG; Start 11/11/18 at 20:30 Magnesium Oxide (Mag-Ox 400) 400 mg DAILY PO Last administered on 11/16/18 09:08; Admin Dose 400 MG; Start 11/11/18 at 20:30 Ivabradine (Corlanor) 5 mg BID PO Last administered on 11/16/18 09:07; Admin Dose 5 MG; Start 11/11/18 at 22:00 Digoxin (Digoxin) 0.125 mg DAILY@1300 PO Last administered on 11/15/18 14:24; Admin Dose 0.125 MG; Start 11/11/18 at 22:00 Acetaminophen/ Hydrocodone Bitart ([place] (5/325)) 1 tab Q4H PRN PO MODERATE PAIN LEVEL 4-6; Start 11/12/18 at 16:00 Acetaminophen/ Hydrocodone Bitart ([place] (10/325)) 1 tab Q4H PRN PO MODERATE PAIN LEVEL 4-6 Last administered on 11/15/18at 17:48; Admin Dose 1 TAB; Start 11/12/18 at 16:00 Atorvastatin Calcium (Lipitor) 20 mg QHS PO Last administered on 11/15/18at 20:35; Admin Dose 20 MG; Start 11/12/18 at 21:00 Miscellaneous Information Patients own medicat... BID@ XX ; Start 11/13/18 at 10:00 Furosemide (Lasix) 40 mg DAILY PO Last administered on 11/16/18 09:08; Admin Dose 40 MG; Start 11/14/18 at 09:00 Docusate Sodium (Colace) 100 mg BID PO Last administered on 11/16/18 09:07; Admin Dose 100 MG; Start 11/13/18 at 21:00 Hydromorphone HCl (Dilaudid) 1.5 mg Q4H PRN IV SEVERE PAIN LEVEL 7-10 Last administered on 11/16/18 04:09; Admin Dose 1.5 MG; Start 11/15/18 at 00:00 Lorazepam (Ativan) 1 mg Q4 PRN IV AGITATION/ANXIETY Last administered on 11/16/18 06:17; Admin Dose 1 MG; Start 11/14/18 at 23:00 Bisacodyl (Dulcolax) 10 mg DAILY PRN PO CONSTIPATION Last administered on 11/15/18at 10:50; Admin Dose 10 MG; Start 11/15/18 at 10:30 JOSE ANDREW Nov 16, 2018 12:16
[2018-11-16] MEDS: morphine 4 MG/ML VIAL IV PRN (12:17)
[2018-11-16] MEDS: DIGOXIN 0.125 MG TAB PO SCH (13:35)
[2018-11-16] MEDS: HYDROCODONE/APAP (10/325) TAB PO PRN (13:39)
[2018-11-16] MEDS: ATORVASTATIN 20 MG TAB PO SCH (20:07)
[2018-11-17] VITALS (12 sets, daily range): BP systolic 98–113; BP diastolic 56–65; PULSE 75–82; RESP 16–18
[2018-11-17] MEDS: HYDROmorphONE 2 MG/ML SYG IV PRN ×5 (00:18→20:24)
[2018-11-17] MEDS: HYDROCODONE/APAP (10/325) TAB PO PRN ×2 (02:14→09:28)
[2018-11-17] MEDS: LORAZEPAM 2 MG INJ IV PRN (06:25)
--- NOTE | 2018-11-17 08:26 | CONS ---
Assessment/Plan Assessment/Plan Hospital Course (Demo Recall) 58-year-old male underwent surgery for a very large incarcerated right inguinal hernia on 11/12/2018. It appears the hernia was very large and complex. A urological consultation was requested because of very large swelling of the scrotum. The the patient complains of pain when the scrotum is touched. He is able however to urinate and denies any problem voiding in the past. On the exam the scrotum is very large and swollen. This does happen after repair of large inguinal hernia. Recommendation is to keep the scrotum elevated on a towel all the time and apply some ice pack on it. Consultation Date/Type/Reason Admit Date/Time Nov 11, 2018 at 10:32 Date of Consultation: Nov 17, 2018 Type of Consult Urology Reason for Consultation Scrotal swelling Requesting Provider: ÁLVARO MENCHACA MD Date/Time of Note DATE: 11/17/18 TIME: 08:18 Hx of Present Illness 58-year-old male underwent surgery for a very large incarcerated right inguinal hernia on 11/12/2018. It appears the hernia was very large and complex. A urological consultation was requested because of very large swelling of the scrotum. The the patient complains of pain when the scrotum is touched. He is able however to urinate and denies any problem voiding in the past. Constitutional: no complaints Eyes: no complaints ENT: no complaints Respiratory: no complaints; No wheezing Cardiovascular: No chest pain Gastrointestinal: no complaints Genitourinary: other (As per history of present illness) Musculoskeletal: no complaints Skin: no complaints Neurologic: no complaints Endocrine: no complaints Past Medical History Medical History: congestive heart failure, high cholesterol, other (ICD placement) Home Meds Reported Medications Ivabradine HCl (Corlanor) 5 Mg Tablet, 5 MG PO BID 11/11/18 Atorvastatin Calcium (Atorvastatin Calcium) 20 Mg Tablet, 20 MG PO QHS 11/11/18 Carvedilol* (Carvedilol*) 3.125 Mg Tablet, 3.125 MG PO BID 11/11/18 Furosemide* (Furosemide*) 40 Mg Tablet, 40 MG PO DAILY 11/11/18 Folic Acid* (Folic Acid*) 1 Mg Tablet, 1 MG PO DAILY 11/11/18 Digoxin* (Digitek*) 125 Mcg Tablet, 0.125 MG PO DAILY 11/11/18 Magnesium Oxide* (Mag-Oxide*) 400 Mg Tablet, 400 MG PO DAILY 11/11/18 Amiodarone Hcl* (Amiodarone Hcl*) 200 Mg Tablet, 200 MG PO DAILY 11/11/18 Discontinued Reported Medications Aspirin* (Aspirin* EC) 81 Mg Tablet.dr, 81 MG PO DAILY 11/11/18 Medications Current Medications Morphine Sulfate (morphine) 4 mg Q4H PRN IV severe pain 7-10 Last administered on 11/16/18 12:17; Admin Dose 4 MG; Start 11/11/18 at 18:00 Amiodarone HCl (Cordarone) 200 mg DAILY PO Last administered on 11/16/18 09:08; Admin Dose 200 MG; Start 11/11/18 at 20:30 Folic Acid (Folic Acid) 1 mg DAILY PO Last administered on 11/16/18 09:08; Admin Dose 1 MG; Start 11/11/18 at 20:30 Magnesium Oxide (Mag-Ox 400) 400 mg DAILY PO Last administered on 11/16/18at 09:08; Admin Dose 400 MG; Start 11/11/18 at 20:30 Ivabradine (Corlanor) 5 mg BID PO Last administered on 11/16/18 20:07; Admin Dose 5 MG; Start 11/11/18 at 22:00 Digoxin (Digoxin) 0.125 mg DAILY@1300 PO Last administered on 11/16/18at 13:35; Admin Dose 0.125 MG; Start 11/11/18 at 22:00 Acetaminophen/ Hydrocodone Bitart ([place] (5/325)) 1 tab Q4H PRN PO MODERATE KAY N LEVEL 4-6; Start 11/12/18 at 16:00 Acetaminophen/ Hydrocodone Bitart ([place] (10/325)) 1 tab Q4H PRN PO MODERATE PAIN LEVEL 4-6 Last administered on 11/17/18at 02:14; Admin Dose 1 TAB; Start 11/12/18 at 16:00 Atorvastatin Calcium (Lipitor) 20 mg QHS PO Last administered on 11/16/18 20:07; Admin Dose 20 MG; Start 11/12/18 at 21:00 Miscellaneous Information Patients own medicat... BID@10,16 XX ; Start 11/13/18 at 10:00 Furosemide (Lasix) 40 mg DAILY PO Last administered on 11/16/18at 09:08; Admin Dose 40 MG; Start 11/14/18 at 09:00 Docusate Sodium (Colace) 100 mg BID PO Last administered on 11/16/18at 20:07; Admin Dose 100 MG; Start 11/13/18 at 21:00 Hydromorphone HCl (Dilaudid) 1.5 mg Q4H PRN IV SEVERE PAIN LEVEL 7-10 Last administered on 11/17/18at 04:21; Admin Dose 1.5 MG; Start 11/15/18 at 00:00 Lorazepam (Ativan) 1 mg Q4 PRN IV AGITATION/ANXIETY Last administered on 11/17/18at 06:25; Admin Dose 1 MG; Start 11/14/18 at 23:00 Bisacodyl (Dulcolax) 10 mg DAILY PRN PO CONSTIPATION Last administered on 11/15/18at 10:50; Admin Dose 10 MG; Start 11/15/18 at 10:30 Allergies: Coded Allergies: No Known Allergy (Unverified , 11/11/18) Past Surgical History Past Surgical Hx: other (sp ICD PLACEMENT) Social History Smoking Status: Former smoker Exam/Review of Systems Exam Vitals Vital Signs Date Temp Pulse Resp B/P (MAP) Pulse Ox O2 O2 Flow FiO2 Time Delivery Rate 11/17/18 82 08:03 11/17/18 97.8 16 107/57 98 07:57 (74) Intake and Output 11/16/18 11/16/18 11/17/18 1515:00 23:00 07:00 IntakeIntake Total 700 ml 400 ml OutputOutput Total 400 ml 250 ml BalanceBalance 300 ml 150 ml Constitutional: alert Psych: no complaints Head: normocephalic Eyes: nl conjunctiva Respiratory: clear to auscultation; No wheezing Cardiovascular: No jugular venous distention (JVD) Gastrointestinal: soft Genitourinary - Male: other (Very large scrotum) Musculoskeletal: nl extremities to inspection Extremities: other (Has varicose veins left side); No calf tenderness Neurological: nl mental status Skin: nl turgor Lymph: nl lymph nodes Results Result Diagram: 11/17/18 0509 11/17/18 0509 Results 24hrs Laboratory Tests Test 11/17/18 05:09 White Blood Count 7.6 # Red Blood Count 3.81 L Hemoglobin 11.0 L Hematocrit 35.0 L Mean Corpuscular Volume 91.9 Mean Corpuscular Hemoglobin 28.9 L Mean Corpuscular Hemoglobin Concent 31.4 L Red Cell Distribution Width 16.2 H Platelet Count 264 Mean Platelet Volume 8.7 Immature Granulocytes % 0.400 Neutrophils % 77.6 H Lymphocytes % 9.0 L Monocytes % 10.6 Eosinophils % 2.0 Basophils % 0.4 Nucleated Red Blood Cells % 0.0 Immature Granulocytes # 0.030 Neutrophils # 5.9 Lymphocytes # 0.7 L Monocytes # 0.8 Eosinophils # 0.2 Basophils # 0.0 Nucleated Red Blood Cells # 0.0 Sodium Level 137 Potassium Level 3.9 Chloride Level 100 Carbon Dioxide Level 28 Anion Gap 9 Blood Urea Nitrogen 13 Creatinine 0.73 Est Glomerular Filtrat Rate mL/min > 60 Glucose Level 101 Calcium Level 8.7 Magnesium Level 1.9 Medications Medication Current Medications Morphine Sulfate (morphine) 4 mg Q4H PRN IV severe pain 7-10 Last administered on 11/16/18 12:17; Admin Dose 4 MG; Start 11/11/18 at 18:00 Amiodarone HCl (Cordarone) 200 mg DAILY PO Last administered on 11/16/18 09:08; Admin Dose 200 MG; Start 11/11/18 at 20:30 Folic Acid (Folic Acid) 1 mg DAILY PO Last administered on 11/16/18 09:08; Admin Dose 1 MG; Start 11/11/18 at 20:30 Magnesium Oxide (Mag-Ox 400) 400 mg DAILY PO Last administered on 11/16/18 09:08; Admin Dose 400 MG; Start 11/11/18 at 20:30 Ivabradine (Corlanor) 5 mg BID PO Last administered on 11/16/18 20:07; Admin Dose 5 MG; Start 11/11/18 at 22:00 Digoxin (Digoxin) 0.125 mg DAILY@1300 PO Last administered on 11/16/18 13:35; Admin Dose 0.125 MG; Start 11/11/18 at 22:00 Acetaminophen/ Hydrocodone Bitart ([place] (5/325)) 1 tab Q4H PRN PO MODERATE PAIN LEVEL 4-6; Start 11/12/18 at 16:00 Acetaminophen/ Hydrocodone Bitart ([place] (10/325)) 1 tab Q4H PRN PO MODERATE PAIN LEVEL 4-6 Last administered on 11/17/18 02:14; Admin Dose 1 TAB; Start 11/12/18 at 16:00 Atorvastatin Calcium (Lipitor) 20 mg QHS PO Last administered on 11/16/18 20:07; Admin Dose 20 MG; Start 11/12/18 at 21:00 Miscellaneous Information Patients own medicat... BID@ XX ; Start 11/13/18 at 10:00 Furosemide (Lasix) 40 mg DAILY PO Last administered on 11/16/18 09:08; Admin Dose 40 MG; Start 11/14/18 at 09:00 Docusate Sodium (Colace) 100 mg BID PO Last administered on 11/16/18 20:07; Admin Dose 100 MG; Start 11/13/18 at 21:00 Hydromorphone HCl (Dilaudid) 1.5 mg Q4H PRN IV SEVERE PAIN LEVEL 7-10 Last administered on 11/17/18 04:21; Admin Dose 1.5 MG; Start 11/15/18 at 00:00 Lorazepam (Ativan) 1 mg Q4 PRN IV AGITATION/ANXIETY Last administered on 11/17/18 06:25; Admin Dose 1 MG; Start 11/14/18 at 23:00 Bisacodyl (Dulcolax) 10 mg DAILY PRN PO CONSTIPATION Last administered on 11/15/18 10:50; Admin Dose 10 MG; Start 11/15/18 at 10:30 ZEINAB ARIZA MD Nov 17, 2018 08:26
[2018-11-17] MEDS: DOCUSATE SODIUM 100 MG CAP PO SCH ×2 (09:27→20:21)
[2018-11-17] MEDS: MAGNESIUM OXIDE 400 MG TAB PO SCH (09:27)
[2018-11-17] MEDS: FOLIC ACID 1 MG TAB PO SCH (09:27)
[2018-11-17] MEDS: FUROSEMIDE 40 MG TAB PO SCH (09:28)
[2018-11-17] MEDS: IVABRADINE HCL 5 MG TABLET PO SCH ×2 (09:28→20:21)
[2018-11-17] MEDS: AMIODARONE 200 MG TAB PO SCH (09:28)
[2018-11-17] MEDS: DIGOXIN 0.125 MG TAB PO SCH (12:55)
[2018-11-17] MEDS: morphine 4 MG/ML VIAL IV PRN (12:56)
--- NOTE | 2018-11-17 15:55 | PN ---
Date/Time of Note Date/Time of Note DATE: 11/17/18 TIME: 15:50 Assessment/Plan VTE Prophylaxis Risk score (from Ns)>0 risk: 3 SCD applied (from Ns): Yes Pharmacological prophylaxis: NA/contraindicated Pharm contraindication: surgical contra Lines/Catheters IV C[facility]ter Type (from [facility] Saline Lock Assessment/Plan Hospital Course Patient patient still has pain requiring [place] and Dilaudid, scrotal swelling status post evaluation by Dr. Ortiz urology consultation continue to follow-up urology recommendations. Assessment/Plan - Large incarcerated right inguinal hernia, status post right inguinal hernia repair with mesh, removal of spermatic cord cord lesion and reconstruction of scrotum by Dr. Villalobos. Continue [place] and morphine as needed for pain and Zofran as needed for nausea. -Postoperative scrotal seroma. Dr. Ortiz is following in urology con sultation. -Congestive heart failure, continue Lasix and Coreg -Status post recent permanent pacemaker insertion by Dr. Alba -Hyperlipidemia, continue statin Further recommendations based on clinical course. Plan of care discussed with Dr. Mckay. Result Diagram: 11/17/18 0509 11/17/18 0509 Results 24hrs Laboratory Tests Test 11/17/18 05:09 White Blood Count 7.6 # Red Blood Count 3.81 L Hemoglobin 11.0 L Hematocrit 35.0 L Mean Corpuscular Volume 91.9 Mean Corpuscular Hemoglobin 28.9 L Mean Corpuscular Hemoglobin Concent 31.4 L Red Cell Distribution Width 16.2 H Platelet Count 264 Mean Platelet Volume 8.7 Immature Granulocytes % 0.400 Neutrophils % 77.6 H Lymphocytes % 9.0 L Monocytes % 10.6 Eosinophils % 2.0 Basophils % 0.4 Nucleated Red Blood Cells % 0.0 Immature Granulocytes # 0.030 Neutrophils # 5.9 Lymphocytes # 0.7 L Monocytes # 0.8 Eosinophils # 0.2 Basophils # 0.0 Nucleated Red Blood Cells # 0.0 Sodium Level 137 Potassium Level 3.9 Chloride Level 100 Carbon Dioxide Level 28 Anion Gap 9 Blood Urea Nitrogen 13 Creatinine 0.73 Est Glomerular Filtrat Rate mL/min > 60 Glucose Level 101 Calcium Level 8.7 Magnesium Level 1.9 Exam/Review of Systems Exam Vitals Vital Signs Date Temp Pulse Resp B/P (MAP) Pulse Ox O2 O2 Flow FiO2 Time Delivery Rate 11/17/18 97.8 77 16 104/65 97 15:23 (78) 11/17/18 Room Air 12:20 Intake and Output 11/16/18 11/16/18 11/17/18 1515:00 23:00 07:00 IntakeIntake Total 700 ml 400 ml OutputOutput Total 400 ml 250 ml BalanceBalance 300 ml 150 ml Exam Constitutional: alert, oriented Respiratory: clear to auscultation Cardiovascular: regular rate and rhythm, other (Left chest PPM) Gastrointestinal: soft, non-tender Genitourinary - Male: other (Status post right inguinal hernia repair) Extremities: normal pulses Neurological: nl mental status Skin: nl turgor Results Results 24hrs Laboratory Tests Test 11/17/18 05:09 White Blood Count 7.6 # Red Blood Count 3.81 L Hemoglobin 11.0 L Hematocrit 35.0 L Mean Corpuscular Volume 91.9 Mean Corpuscular Hemoglobin 28.9 L Mean Corpuscular Hemoglobin Concent 31.4 L Red Cell Distribution Width 16.2 H Platelet Count 264 Mean Platelet Volume 8.7 Immature Granulocytes % 0.400 Neutrophils % 77.6 H Lymphocytes % 9.0 L Monocytes % 10.6 Eosinophils % 2.0 Basophils % 0.4 Nucleated Red Blood Cells % 0.0 Immature Granulocytes # 0.030 Neutrophils # 5.9 Lymphocytes # 0.7 L Monocytes # 0.8 Eosinophils # 0.2 Basophils # 0.0 Nucleated Red Blood Cells # 0.0 Sodium Level 137 Potassium Level 3.9 Chloride Level 100 Carbon Dioxide Level 28 Anion Gap 9 Blood Urea Nitrogen 13 Creatinine 0.73 Est Glomerular Filtrat Rate mL/min > 60 Glucose Level 101 Calcium Level 8.7 Magnesium Level 1.9 Medications Medication Current Medications Morphine Sulfate (morphine) 4 mg Q4H PRN IV severe pain 7-10 Last administered on 11/17/18at 12:56; Admin Dose 4 MG; Start 11/11/18 at 18:00 Amiodarone HCl (Cordarone) 200 mg DAILY PO Last administered on 11/17/18at 09:28; Admin Dose 200 MG; Start 11/11/18 at 20:30 Folic Acid (Folic Acid) 1 mg DAILY PO Last administered on 11/17/18at 09:27; Admin Dose 1 MG; Start 11/11/18 at 20:30 Magnesium Oxide (Mag-Ox 400) 400 mg DAILY PO Last administered on 11/17/18 09:27; Admin Dose 400 MG; Start 11/11/18 at 20:30 Ivabradine (Corlanor) 5 mg BID PO Last administered on 11/17/18 09:28; Admin Dose 5 MG; Start 11/11/18 at 22:00 Digoxin (Digoxin) 0.125 mg DAILY@1300 PO Last administered on 11/17/18 12:55; Admin Dose 0.125 MG; Start 11/11/18 at 22:00 Acetaminophen/ Hydrocodone Bitart ([place] (5/325)) 1 tab Q4H PRN PO MODERATE PAIN LEVEL 4-6; Start 11/12/18 at 16:00 Acetaminophen/ Hydrocodone Bitart ([place] (10/325)) 1 tab Q4H PRN PO MODERATE PAIN LEVEL 4-6 Last administered on 11/17/18 09:28; Admin Dose 1 TAB; Start 11/12/18 at 16:00 Atorvastatin Calcium (Lipitor) 20 mg QHS PO Last administered on 11/16/18 20:07; Admin Dose 20 MG; Start 11/12/18 at 21:00 Miscellaneous Information Patients own medicat... BID@10,16 XX ; Start 11/13/18 at 10:00 Furosemide (Lasix) 40 mg DAILY PO Last administered on 11/17/18 09:28; Admin Dose 40 MG; Start 11/14/18 at 09:00 Docusate Sodium (Colace) 100 mg BID PO Last administered on 11/17/18 09:27; Admin Dose 100 MG; Start 11/13/18 at 21:00 Hydromorphone HCl (Dilaudid) 1.5 mg Q4H PRN IV SEVERE PAIN LEVEL 7-10 Last ad ministered on 11/17/18 15:50; Admin Dose 1.5 MG; Start 11/15/18 at 00:00 Lorazepam (Ativan) 1 mg Q4 PRN IV AGITATION/ANXIETY Last administered on 11/17/18 06:25; Admin Dose 1 MG; Start 11/14/18 at 23:00 Bisacodyl (Dulcolax) 10 mg DAILY PRN PO CONSTIPATION Last administered on 11/15/18 10:50; Admin Dose 10 MG; Start 11/15/18 at 10:30 JOSE ANDREW Nov 17, 2018 15:55
[2018-11-17] MEDS: BISACODYL (EC) 5 MG TAB PO PRN (20:21)
[2018-11-17] MEDS: ATORVASTATIN 20 MG TAB PO SCH (20:21)
[2018-11-18] VITALS (12 sets, daily range): BP systolic 100–108; BP diastolic 56–66; PULSE 67–87; RESP 18–22
[2018-11-18] MEDS: HYDROmorphONE 2 MG/ML SYG IV PRN ×4 (00:21→20:00)
[2018-11-18] MEDS: HYDROCODONE/APAP (10/325) TAB PO PRN ×2 (08:59→13:42)
[2018-11-18] MEDS: DOCUSATE SODIUM 100 MG CAP PO SCH ×2 (08:59→20:00)
[2018-11-18] MEDS: FOLIC ACID 1 MG TAB PO SCH (09:00)
[2018-11-18] MEDS: IVABRADINE HCL 5 MG TABLET PO SCH ×2 (09:00→20:00)
[2018-11-18] MEDS: FUROSEMIDE 40 MG TAB PO SCH (09:00)
[2018-11-18] MEDS: MAGNESIUM OXIDE 400 MG TAB PO SCH (09:00)
[2018-11-18] MEDS: AMIODARONE 200 MG TAB PO SCH (09:01)
--- NOTE | 2018-11-18 11:25 | PN ---
Date/Time of Note Date/Time of Note DATE: 11/18/18 TIME: 11:24 Assessment/Plan VTE Prophylaxis Risk score (from Nsg)>0 risk: 2 SCD applied (from Nsg): Yes Lines/Catheters IV Catheter Type (from Nrsg): Saline Lock Assessment/Plan Assessment/Plan - Large incarcerated right inguinal hernia, status post right inguinal hernia repair with mesh, removal of spermatic cord cord lesion and reconstruction of scrotum by Dr. Villalobos. Continue [place] and morphine as needed for pain and Zofran as needed for nausea. -Postoperative scrotal seroma. Dr. Ortiz is following in urology consultation. -Congestive heart failure, continue Lasix and Coreg -Status post recent permanent pacemaker insertion by Dr. Alba -Hyperlipidemia, continue statin Further recommendations based on clinical course. Plan of care discussed with Dr. Mckay. Result Diagram: 11/18/18 0554 11/18/18 0554 Results 24hrs Laboratory Tests Test 11/18/18 05:54 White Blood Count 6.5 Red Blood Count 3.75 L Hemoglobin 10.8 L Hematocrit 33.6 L Mean Corpuscular Volume 89.6 Mean Corpuscular Hemoglobin 28.8 L Mean Corpuscular Hemoglobin Concent 32.1 Red Cell Distribution Width 16.2 H Platelet Count 268 Mean Platelet Volume 8.6 Immature Granulocytes % 0.300 Neutrophils % 73.4 Lymphocytes % 10.5 L Monocytes % 13.0 H Eosinophils % 2.2 Basophils % 0.6 Nucleated Red Blood Cells % 0.0 Immature Granulocytes # 0.020 Neutrophils # 4.8 Lymphocytes # 0.7 L Monocytes # 0.8 Eosinophils # 0.1 Basophils # 0.0 Nucleated Red Blood Cells # 0.0 Sodium Level 135 Potassium Level 3.7 Chloride Level 99 Carbon Dioxide Level 30 Anion Gap 6 Blood Urea Nitrogen 9 Creatinine 0.65 Est Glomerular Filtrat Rate mL/min > 60 Glucose Level 109 Calcium Level 8.7 Exam/Review of Systems Exam Vitals Vital Signs Date Temp Pulse Resp B/P (MAP) Pulse Ox O2 O2 Flow FiO2 Time Delivery Rate 11/18/18 80 09:02 11/18/18 98.3 22 101/56 92 Room Air 07:40 (71) Intake and Output 11/17/18 11/17/18 11/18/18 1515:00 23:00 07:00 IntakeIntake Total 500 ml 400 ml OutputOutput Total 300 ml BalanceBalance 500 ml 100 ml Results Results 24hrs Laboratory Tests Test 11/18/18 05:54 White Blood Count 6.5 Red Blood Count 3.75 L Hemoglobin 10.8 L Hematocrit 33.6 L Mean Corpuscular Volume 89.6 Mean Corpuscular Hemoglobin 28.8 L Mean Corpuscular Hemoglobin Concent 32.1 Red Cell Distribution Width 16.2 H Platelet Count 268 Mean Platelet Volume 8.6 Immature Granulocytes % 0.300 Neutrophils % 73.4 Lymphocytes % 10.5 L Monocytes % 13.0 H Eosinophils % 2.2 Basophils % 0.6 Nucleated Red Blood Cells % 0.0 Immature Granulocytes # 0.020 Neutrophils # 4.8 Lymphocytes # 0.7 L Monocytes # 0.8 Eosinophils # 0.1 Basophils # 0.0 Nucleated Red Blood Cells # 0.0 Sodium Level 135 Potassium Level 3.7 Chloride Level 99 Carbon Dioxide Level 30 Anion Gap 6 Blood Urea Nitrogen 9 Creatinine 0.65 Est Glomerular Filtrat Rate mL/min > 60 Glucose Level 109 Calcium Level 8.7 Medications Medication Current Medications Morphine Sulfate (morphine) 4 mg Q4H PRN IV severe pain 7-10 Last administered on 11/17/18 12:56; Admin Dose 4 MG; Start 11/11/18 at 18:00 Amiodarone HCl (Cordarone) 200 mg DAILY PO Last administered on 11/18/18 09:01; Admin Dose 200 MG; Start 11/11/18 at 20:30 Folic Acid (Folic Acid) 1 mg DAILY PO Last administered on 11/18/18 09:00; Admin Dose 1 MG; Start 11/11/18 at 20:30 Magnesium Oxide (Mag-Ox 400) 400 mg DAILY PO Last administered on 11/18/18 09:00; Admin Dose 400 MG; Start 11/11/18 at 20:30 Ivabradine (Corlanor) 5 mg BID PO Last administered on 11/18/18 09:00; Admin Dose 5 MG; Start 11/11/18 at 22:00 Digoxin (Digoxin) 0.125 mg DAILY@1300 PO Last administered on 11/17/18 12:55; Admin Dose 0.125 MG; Start 11/11/18 at 22:00 Acetaminophen/ Hydrocodone Bitart ([place] (5/325)) 1 tab Q4H PRN PO MODERATE PAIN LEVEL 4-6; Start 11/12/18 at 16:00 Acetaminophen/ Hydrocodone Bitart ([place] (10/325)) 1 tab Q4H PRN PO MODERATE PAIN LEVEL 4-6 Last administered on 11/18/18 08:59; Admin Dose 1 TAB; Start 11/12/18 at 16:00 Atorvastatin Calcium (Lipitor) 20 mg QHS PO Last administered on 11/17/18 20:21; Admin Dose 20 MG; Start 11/12/18 at 21:00 Miscellaneous Information Patients own medicat... BID@ XX ; Start 11/13/18 at 10:00 Furosemide (Lasix) 40 mg DAILY PO Last administered on 11/18/18 09:00; Admin Dose 40 MG; Start 11/14/18 at 09:00 Docusate Sodium (Colace) 100 mg BID PO Last administered on 11/18/18 08:59; Admin Dose 100 MG; Start 11/13/18 at 21:00 Hydromorphone HCl (Dilaudid) 1.5 mg Q4H PRN IV SEVERE PAIN LEVEL 7-10 Last administered on 11/18/18 04:13; Admin Dose 1.5 MG; Start 11/15/18 at 00:00 Lorazepam (Ativan) 1 mg Q4 PRN IV AGITATION/ANXIETY Last administered on 11/17/18 06:25; Admin Dose 1 MG; Start 11/14/18 at 23:00 Bisacodyl (Dulcolax) 10 mg DAILY PRN PO CONSTIPATION Last administered on 11/17/18 20:21; Admin Dose 10 MG; Start 11/15/18 at 10:30 MARY LOU MURRIETA Nov 18, 2018 11:25
[2018-11-18] MEDS: DIGOXIN 0.125 MG TAB PO SCH (14:04)
--- NOTE | 2018-11-18 15:42 | QN ---
Documentation Comment R scrotal swelling to be expected appreciate recs; will cont scrotal elevation and ice Transition to PO pain meds OK to DC home from surgical standpoint; f/u with me at office in 3 wks PETRA WOLFF Nov 18, 2018 15:42
--- NOTE | 2018-11-18 18:53 | CONS ---
Consult Date/Type/Reason Admit Date/Time Nov 11, 2018 at 10:32 Initial Consult Date 11/17/18 Type of Consultation: Urology Reason for Consultation Scrotal edema following inguinal hernia repair Requesting Provider: ÁLVARO MENCHACA MD Date/Time of Note DATE: 11/18/18 TIME: 18:50 Subjective The patient still complains of pain from the scrotal swelling. He however has not been elevating the scrotum on a towel as advised and has been wearing his underwear which will prevent the scrotum from being elevated. Objective Vitals Vital Signs Date Temp Pulse Resp B/P (MAP) Pulse Ox O2 O2 Flow FiO2 Time Delivery Rate 11/18/18 67 16:13 11/18/18 97.9 22 105/59 96 Room Air 12:20 (74) Intake and Output 11/17/18 11/17/18 11/18/18 1414:59 22:59 06:59 IntakeIntake Total 500 ml 400 ml OutputOutput Total 300 ml BalanceBalance 500 ml 100 ml Exam Scrotal edema is about the same as it was yesterday. Results/Medications Result Diagram: 11/18/18 0554 11/18/18 0554 Results 24 hrs Laboratory Tests Test 11/18/18 05:54 White Blood Count 6.5 Red Blood Count 3.75 L Hemoglobin 10.8 L Hematocrit 33.6 L Mean Corpuscular Volume 89.6 Mean Corpuscular Hemoglobin 28.8 L Mean Corpuscular Hemoglobin Concent 32.1 Red Cell Distribution Width 16.2 H Platelet Count 268 Mean Platelet Volume 8.6 Immature Granulocytes % 0.300 Neutrophils % 73.4 Lymphocytes % 10.5 L Monocytes % 13.0 H Eosinophils % 2.2 Basophils % 0.6 Nucleated Red Blood Cells % 0.0 Immature Granulocytes # 0.020 Neutrophils # 4.8 Lymphocytes # 0.7 L Monocytes # 0.8 Eosinophils # 0.1 Basophils # 0.0 Nucleated Red Blood Cells # 0.0 Sodium Level 135 Potassium Level 3.7 Chloride Level 99 Carbon Dioxide Level 30 Anion Gap 6 Blood Urea Nitrogen 9 Creatinine 0.65 Est Glomerular Filtrat Rate mL/min > 60 Glucose Level 109 Calcium Level 8.7 Home Meds Reported Medications Ivabradine HCl (Corlanor) 5 Mg Tablet, 5 MG PO BID 11/11/18 Atorvastatin Calcium (Atorvastatin Calcium) 20 Mg Tablet, 20 MG PO QHS 11/11/18 Carvedilol* (Carvedilol*) 3.125 Mg Tablet, 3.125 MG PO BID 11/11/18 Furosemide* (Furosemide*) 40 Mg Tablet, 40 MG PO DAILY 11/11/18 Folic Acid* (Folic Acid*) 1 Mg Tablet, 1 MG PO DAILY 11/11/18 Digoxin* (Digitek*) 125 Mcg Tablet, 0.125 MG PO DAILY 11/11/18 Magnesium Oxide* (Mag-Oxide*) 400 Mg Tablet, 400 MG PO DAILY 11/11/18 Amiodarone Hcl* (Amiodarone Hcl*) 200 Mg Tablet, 200 MG PO DAILY 11/11/18 Discontinued Reported Medications Aspirin* (Aspirin* EC) 81 Mg Tablet.dr, 81 MG PO DAILY 11/11/18 Medications Current Medications Morphine Sulfate (morphine) 4 mg Q4H PRN IV severe pain 7-10 Last administered on 11/17/18at 12:56; Admin Dose 4 MG; Start 11/11/18 at 18:00 Amiodarone HCl (Cordarone) 200 mg DAILY PO Last administered on 11/18/18 09:01; Admin Dose 200 MG; Start 11/11/18 at 20:30 Folic Acid (Folic Acid) 1 mg DAILY PO Last administered on 11/18/18 09:00; Admin Dose 1 MG; Start 11/11/18 at 20:30 Magnesium Oxide (Mag-Ox 400) 400 mg DAILY PO Last administered on 11/18/18 09:00; Admin Dose 400 MG; Start 11/11/18 at 20:30 Ivabradine (Corlanor) 5 mg BID PO Last administered on 11/18/18at 09:00; Admin Dose 5 MG; Start 11/11/18 at 22:00 Digoxin (Digoxin) 0.125 mg DAILY@1300 PO Last administered on 11/18/18at 14:04; Admin Dose 0.125 MG; Start 11/11/18 at 22:00 Acetaminophen/ Hydrocodone Bitart ([place] (5/325)) 1 tab Q4H PRN PO MODERATE PAIN LEVEL 4-6; Start 11/12/18 at 16:00 Acetaminophen/ Hydrocodone Bitart ([place] (10/325)) 1 tab Q4H PRN PO MODERATE PAIN LEVEL 4-6 Last administered on 11/18/18 13:42; Admin Dose 1 TAB; Start 11/12/18 at 16:00 Atorvastatin Calcium (Lipitor) 20 mg QHS PO Last administered on 11/17/18 20:21; Admin Dose 20 MG; Start 11/12/18 at 21:00 Miscellaneous Information Patients own medicat... BID@10,16 XX ; Start 11/13/18 at 10:00 Furosemide (Lasix) 40 mg DAILY PO Last administered on 11/18/18 09:00; Admin Dose 40 MG; Start 11/14/18 at 09:00 Docusate Sodium (Colace) 100 mg BID PO Last administered on 11/18/18 08:59; Admin Dose 100 MG; Start 11/13/18 at 21:00 Hydromorphone HCl (Dilaudid) 1.5 mg Q4H PRN IV SEVERE PAIN LEVEL 7-10 Last administered on 11/18/18 11:47; Admin Dose 1.5 MG; Start 11/15/18 at 00:00 Lorazepam (Ativan) 1 mg Q4 PRN IV AGITATION/ANXIETY Last administered on 11/17/18 06:25; Admin Dose 1 MG; Start 11/14/18 at 23:00 Bisacodyl (Dulcolax) 10 mg DAILY PRN PO CONSTIPATION Last administered on 11/17/18 20:21; Admin Dose 10 MG; Start 11/15/18 at 10:30 Assessment/Plan Hospital Course (Demo Recall) 58-year-old male underwent surgery for a very large incarcerated right inguinal hernia on 11/12/2018. It appears the hernia was very large and complex. A urological consultation was requested because of very large swelling of the scrotum. The the patient complains of pain when the scrotum is touched. He is able however to urinate and denies any problem voiding in the past. Patient was supposed to have the scrotum elevated on a towel all the time. The nurses tell me that he was refusing to do that. I did talk to him and educated him of the importance of elevating the scrotum to allow the swelling to go away and the pain would then decrease. He accepted that and we put a towel underneath the scrotum and elevated it ZEINAB ARIZA MD Nov 18, 2018 18:53
[2018-11-18] MEDS: ATORVASTATIN 20 MG TAB PO SCH (20:00)
[2018-11-18] MEDS: morphine 4 MG/ML VIAL IV PRN (23:59)
[2018-11-19] VITALS (11 sets, daily range): BP systolic 96–124; BP diastolic 56–85; PULSE 65–79; RESP 18–20
[2018-11-19] MEDS: HYDROCODONE/APAP (10/325) TAB PO PRN ×2 (01:53→23:18)
[2018-11-19] MEDS: HYDROmorphONE 2 MG/ML SYG IV PRN ×4 (03:56→20:59)
[2018-11-19] MEDS: FUROSEMIDE 40 MG TAB PO SCH (09:00)
[2018-11-19] MEDS: MAGNESIUM OXIDE 400 MG TAB PO SCH (09:32)
[2018-11-19] MEDS: FOLIC ACID 1 MG TAB PO SCH (09:32)
[2018-11-19] MEDS: DOCUSATE SODIUM 100 MG CAP PO SCH ×2 (09:32→20:44)
[2018-11-19] MEDS: AMIODARONE 200 MG TAB PO SCH (09:33)
[2018-11-19] MEDS: IVABRADINE HCL 5 MG TABLET PO SCH ×2 (09:33→20:44)
--- NOTE | 2018-11-19 11:14 | PN ---
Date/Time of Note Date/Time of Note DATE: 11/19/18 TIME: 11:13 Assessment/Plan VTE Prophylaxis Risk score (from Nsg)>0 risk: 3 SCD applied (from Nsg): Yes Pharmacological prophylaxis: LMWH Lines/Catheters IV Catheter Type (from Nrsg): Saline Lock Assessment/Plan Hospital Course - Large incarcerated right inguinal hernia, status post right inguinal hernia repair with mesh, removal of spermatic cord cord lesion and reconstruction of scrotum by Dr. Villalobos. Continue [place] and morphine as needed for pain and Zofran as needed for nausea. -Postoperative scrotal seroma. Dr. Ortiz is following in urology consultation. -Congestive heart failure, continue Lasix and Coreg -Status post recent permanent pacemaker insertion by Dr. Alba -Hyperlipidemia, continue statin Result Diagram: 11/18/18 0554 11/18/18 0554 Subjective 24 Hr Interval Summary Free Text/Dictation Patient has some pain, is doing some physical therapy Exam/Review of Systems Exam Vitals Vital Signs Date Temp Pulse Resp B/P (MAP) Pulse Ox O2 O2 Flow FiO2 Time Delivery Rate 11/19/18 98.0 69 18 119/85 97 11:12 (96) 11/18/18 Room Air 19:16 Intake and Output 11/18/18 11/18/18 11/19/18 1515:00 23:00 07:00 IntakeIntake Total 600 ml OutputOutput Total 400 ml BalanceBalance 200 ml Constitutional: well developed Head: normocephalic, atraumatic Neck: supple Respiratory: clear to auscultation Cardiovascular: regular rate and rhythm Gastrointestinal: soft, non-tender Extremities: normal pulses Medications Medication Current Medications Morphine Sulfate (morphine) 4 mg Q4H PRN IV severe pain 7-10 Last administered on 11/18/18at 23:59; Admin Dose 4 MG; Start 11/11/18 at 18:00 Amiodarone HCl (Cordarone) 200 mg DAILY PO Last administered on 11/19/18at 09:33; Admin Dose 200 MG; Start 11/11/18 at 20:30 Folic Acid (Folic Acid) 1 mg DAILY PO Last administered on 11/19/18at 09:32; Admin Dose 1 MG; Start 11/11/18 at 20:30 Magnesium Oxide (Mag-Ox 400) 400 mg DAILY PO Last administered on 11/19/18 09:32; Admin Dose 400 MG; Start 11/11/18 at 20:30 Ivabradine (Corlanor) 5 mg BID PO Last administered on 11/19/18 09:33; Admin Dose 5 MG; Start 11/11/18 at 22:00 Digoxin (Digoxin) 0.125 mg DAILY@1300 PO Last administered on 11/18/18 14:04; Admin Dose 0.125 MG; Start 11/11/18 at 22:00 Acetaminophen/ Hydrocodone Bitart ([place] (5/325)) 1 tab Q4H PRN PO MODERATE PAIN LEVEL 4-6; Start 11/12/18 at 16:00 Acetaminophen/ Hydrocodone Bitart ([place] (10/325)) 1 tab Q4H PRN PO MODERATE PAIN LEVEL 4-6 Last administered on 11/19/18 01:53; Admin Dose 1 TAB; Start 11/12/18 at 16:00 Atorvastatin Calcium (Lipitor) 20 mg QHS PO Last administered on 11/18/18 20:00; Admin Dose 20 MG; Start 11/12/18 at 21:00 Miscellaneous Information Patients own medicat... BID@10,16 XX ; Start 11/13/18 at 10:00 Furosemide (Lasix) 40 mg DAILY PO Last administered on 11/18/18 09:00; Admin Dose 40 MG; Start 11/14/18 at 09:00 Docusate Sodium (Colace) 100 mg BID PO Last administered on 11/19/18 09:32; Admin Dose 100 MG; Start 11/13/18 at 21:00 Hydromorphone HCl (Dilaudid) 1.5 mg Q4H PRN IV SEVERE PAIN LEVEL 7-10 Last administered on 11/19/18 09:41; Admin Dose 1.5 MG; Start 11/15/18 at 00:00 Lorazepam (Ativan) 1 mg Q4 PRN IV AGITATION/ANXIETY Last administered on 11/17/18 06:25; Admin Dose 1 MG; Start 11/14/18 at 23:00 Bisacodyl (Dulcolax) 10 mg DAILY PRN PO CONSTIPATION Last administered on 11/17/18 20:21; Admin Dose 10 MG; Start 11/15/18 at 10:30 GISSELLE LEMUS Nov 19, 2018 11:14
--- NOTE | 2018-11-19 11:20 | CONS ---
Consult Date/Type/Reason Admit Date/Time Nov 11, 2018 at 10:32 Initial Consult Date 11/17/18 Type of Consultation: Urology Reason for Consultation Scrotal swelling post inguinal hernia repair Requesting Provider: ÁLVARO MENCHACA MD Date/Time of Note DATE: 11/19/18 TIME: 11:19 Subjective Patient states he is feeling better. In fact the scrotal swelling has decreased since yesterday as the patient is making a good effort to keep the scrotum elevated Objective Vitals Vital Signs Date Temp Pulse Resp B/P (MAP) Pulse Ox O2 O2 Flow FiO2 Time Delivery Rate 11/19/18 98.0 69 18 119/85 97 11:12 (96) 11/18/18 Room Air 19:16 Intake and Output 11/18/18 11/18/18 11/19/18 1515:00 23:00 07:00 IntakeIntake Total 600 ml OutputOutput Total 400 ml BalanceBalance 200 ml Exam Scrotal edema is less and the patient is voiding well and he denies any dysuria Results/Medications Result Diagram: 11/18/18 0554 11/18/18 0554 Home Meds Reported Medications Ivabradine HCl (Corlanor) 5 Mg Tablet, 5 MG PO BID 11/11/18 Atorvastatin Calcium (Atorvastatin Calcium) 20 Mg Tablet, 20 MG PO QHS 11/11/18 Carvedilol* (Carvedilol*) 3.125 Mg Tablet, 3.125 MG PO BID 11/11/18 Furosemide* (Furosemide*) 40 Mg Tablet, 40 MG PO DAILY 11/11/18 Folic Acid* (Folic Acid*) 1 Mg Tablet, 1 MG PO DAILY 11/11/18 Digoxin* (Digitek*) 125 Mcg Tablet, 0.125 MG PO DAILY 11/11/18 Magnesium Oxide* (Mag-Oxide*) 400 Mg Tablet, 400 MG PO DAILY 11/11/18 Amiodarone Hcl* (Amiodarone Hcl*) 200 Mg Tablet, 200 MG PO DAILY 11/11/18 Medications Current Medications Morphine Sulfate (morphine) 4 mg Q4H PRN IV severe pain 7-10 Last administered on 11/18/18at 23:59; Admin Dose 4 MG; Start 11/11/18 at 18:00 Amiodarone HCl (Cordarone) 200 mg DAILY PO Last administered on 11/19/18 09:33; Admin Dose 200 MG; Start 11/11/18 at 20:30 Folic Acid (Folic Acid) 1 mg DAILY PO Last administered on 11/19/18 09:32; Admin Dose 1 MG; Start 11/11/18 at 20:30 Magnesium Oxide (Mag-Ox 400) 400 mg DAILY PO Last administered on 11/19/18 09:32; Admin Dose 400 MG; Start 11/11/18 at 20:30 Ivabradine (Corlanor) 5 mg BID PO Last administered on 11/19/18 09:33; Admin Dose 5 MG; Start 11/11/18 at 22:00 Digoxin (Digoxin) 0.125 mg DAILY@1300 PO Last administered on 11/18/18 14:04; Admin Dose 0.125 MG; Start 11/11/18 at 22:00 Acetaminophen/ Hydrocodone Bitart ([place] (5/325)) 1 tab Q4H PRN PO MODERATE PAIN LEVEL 4-6; Start 11/12/18 at 16:00 Acetaminophen/ Hydrocodone Bitart ([place] (10/325)) 1 tab Q4H PRN PO MODERATE PAIN LEVEL 4-6 Last administered on 11/19/18 01:53; Admin Dose 1 TAB; Start 11/12/18 at 16:00 Atorvastatin Calcium (Lipitor) 20 mg QHS PO Last administered on 11/18/18 20:00; Admin Dose 20 MG; Start 11/12/18 at 21:00 Miscellaneous Information Patients own medicat... BID@10,16 XX ; Start 11/13/18 at 10:00 Furosemide (Lasix) 40 mg DAILY PO Last administered on 11/18/18 09:00; Admin Dose 40 MG; Start 11/14/18 at 09:00 Docusate Sodium (Colace) 100 mg BID PO Last administered on 11/19/18 09:32; Admin Dose 100 MG; Start 11/13/18 at 21:00 Hydromorphone HCl (Dilaudid) 1.5 mg Q4H PRN IV SEVERE PAIN LEVEL 7-10 Last ad ministered on 11/19/18 09:41; Admin Dose 1.5 MG; Start 11/15/18 at 00:00 Lorazepam (Ativan) 1 mg Q4 PRN IV AGITATION/ANXIETY Last administered on 11/17/18at 06:25; Admin Dose 1 MG; Start 11/14/18 at 23:00 Bisacodyl (Dulcolax) 10 mg DAILY PRN PO CONSTIPATION Last administered on 11/17/18at 20:21; Admin Dose 10 MG; Start 11/15/18 at 10:30 Assessment/Plan Hospital Course (Demo Recall) 58-year-old male underwent surgery for a very large incarcerated right inguinal hernia on 11/12/2018. It appears the hernia was very large and complex. A urological consultation was requested because of very large swelling of the scrotum. The the patient complains of pain when the scrotum is touched. He is able however to urinate and denies any problem voiding in the past. As the scrotum has been elevated on a towel the swelling has decreased but still significant. Again discussed with the patient to keep the scrotum elevated and when he is ambulating he could use a scrotal support and that would help with the pain. ZEINAB ARIZA MD Nov 19, 2018 11:20
[2018-11-19] MEDS: DIGOXIN 0.125 MG TAB PO SCH (13:30)
[2018-11-19] MEDS: morphine 4 MG/ML VIAL IV PRN (17:24)
[2018-11-19] MEDS: ATORVASTATIN 20 MG TAB PO SCH (20:44)
[2018-11-19] MEDS: BISACODYL (EC) 5 MG TAB PO PRN (21:01)
[2018-11-20] VITALS (9 sets, daily range): BP systolic 99–115; BP diastolic 57–70; PULSE 60–79; RESP 16–19
[2018-11-20] MEDS: HYDROmorphONE 2 MG/ML SYG IV PRN ×6 (00:49→21:57)
[2018-11-20] MEDS: HYDROCODONE/APAP (10/325) TAB PO PRN (07:40)
[2018-11-20] MEDS: MAGNESIUM OXIDE 400 MG TAB PO SCH (08:45)
[2018-11-20] MEDS: AMIODARONE 200 MG TAB PO SCH (08:45)
[2018-11-20] MEDS: FOLIC ACID 1 MG TAB PO SCH (08:45)
[2018-11-20] MEDS: IVABRADINE HCL 5 MG TABLET PO SCH ×2 (08:45→23:12)
[2018-11-20] MEDS: BISACODYL (EC) 5 MG TAB PO PRN (08:45)
[2018-11-20] MEDS: DOCUSATE SODIUM 100 MG CAP PO SCH ×2 (08:46→21:57)
[2018-11-20] MEDS: FUROSEMIDE 40 MG TAB PO SCH (09:00)
--- NOTE | 2018-11-20 11:31 | PN ---
Date/Time of Note Date/Time of Note DATE: 11/20/18 TIME: 11:30 Assessment/Plan VTE Prophylaxis Risk score (from Nsg)>0 risk: 2 SCD applied (from Nsg): Yes Pharmacological prophylaxis: LMWH Lines/Catheters IV Catheter Type (from Nrsg): Saline Lock Assessment/Plan Hospital Course - Large incarcerated right inguinal hernia, status post right inguinal hernia repair with mesh, removal of spermatic cord cord lesion and reconstruction of scrotum by Dr. Villalobos. Continue [place] and morphine as needed for pain and Zofran as needed for nausea. -Postoperative scrotal seroma. Dr. Ortiz is following in urology consultation. -Congestive heart failure, continue Lasix and Coreg -Status post recent permanent pacemaker insertion by Dr. Alba -Hyperlipidemia, continue statin Result Diagram: 11/18/18 0554 11/18/18 0554 Subjective 24 Hr Interval Summary Free Text/Dictation Patient has some pain from surgery Exam/Review of Systems Exam Vitals Vital Signs Date Temp Pulse Resp B/P (MAP) Pulse Ox O2 O2 Flow FiO2 Time Delivery Rate 11/20/18 98.1 60 19 102/57 96 11:28 (72) 11/18/18 Room Air 19:16 Intake and Output 11/19/18 11/19/18 11/20/18 1515:00 23:00 07:00 IntakeIntake Total 850 ml 600 ml OutputOutput Total 500 ml BalanceBalance 850 ml 100 ml Constitutional: well developed Head: normocephalic, atraumatic Neck: supple Respiratory: diminished breath sounds Cardiovascular: regular rate and rhythm Gastrointestinal: soft, non-tender Medications Medication Current Medications Morphine Sulfate (morphine) 4 mg Q4H PRN IV severe pain 7-10 Last administered on 11/19/18at 17:24; Admin Dose 4 MG; Start 11/11/18 at 18:00 Amiodarone HCl (Cordarone) 200 mg DAILY PO Last administered on 11/20/18at 08:45; Admin Dose 200 MG; Start 11/11/18 at 20:30 Folic Acid (Folic Acid) 1 mg DAILY PO Last administered on 11/20/18 08:45; Admin Dose 1 MG; Start 11/11/18 at 20:30 Magnesium Oxide (Mag-Ox 400) 400 mg DAILY PO Last administered on 2/24/19at 08:45; Admin Dose 400 MG; Start 11/11/18 at 20:30 Ivabradine (Corlanor) 5 mg BID PO Last administered on 11/20/18 08:45; Admin Dose 5 MG; Start 11/11/18 at 22:00 Digoxin (Digoxin) 0.125 mg DAILY@1300 PO Last administered on 11/19/18 13:30; Admin Dose 0.125 MG; Start 11/11/18 at 22:00 Acetaminophen/ Hydrocodone Bitart ([place] (5/325)) 1 tab Q4H PRN PO MODERATE PAIN LEVEL 4-6; Start 11/12/18 at 16:00 Acetaminophen/ Hydrocodone Bitart ([place] (10/325)) 1 tab Q4H PRN PO MODERATE PAIN LEVEL 4-6 Last administered on 11/20/18 07:40; Admin Dose 1 TAB; Start 11/12/18 at 16:00 Atorvastatin Calcium (Lipitor) 20 mg QHS PO Last administered on 11/19/18 20:44; Admin Dose 20 MG; Start 11/12/18 at 21:00 Miscellaneous Information Patients own medicat... BID@10,16 XX ; Start 11/13/18 at 10:00 Furosemide (Lasix) 40 mg DAILY PO Last administered on 11/18/18 09:00; Admin Dose 40 MG; Start 11/14/18 at 09:00 Docusate Sodium (Colace) 100 mg BID PO Last administered on 11/20/18 08:46; Admin Dose 100 MG; Start 11/13/18 at 21:00 Hydromorphone HCl (Dilaudid) 1.5 mg Q4H PRN IV SEVERE PAIN LEVEL 7-10 Last administered on 11/20/18 09:01; Admin Dose 1.5 MG; Start 11/15/18 at 00:00 Lorazepam (Ativan) 1 mg Q4 PRN IV AGITATION/ANXIETY Last administered on 11/17/18 06:25; Admin Dose 1 MG; Start 11/14/18 at 23:00 Bisacodyl (Dulcolax) 10 mg DAILY PRN PO CONSTIPATION Last administered on 11/20/18 08:45; Admin Dose 10 MG; Start 11/15/18 at 10:30 GISSELLE LEMUS Nov 20, 2018 11:31
[2018-11-20] MEDS: DIGOXIN 0.125 MG TAB PO SCH (15:13)
[2018-11-20] MEDS: ATORVASTATIN 20 MG TAB PO SCH (21:57)
[2018-11-21 02:00] VITALS: BP 103/64; PULSE 68
[2018-11-21] MEDS: HYDROmorphONE 2 MG/ML SYG IV PRN ×5 (02:11→22:20)
[2018-11-21 07:49] VITALS: BP 111/67; PULSE 66; RESP 18
[2018-11-21] MEDS: FUROSEMIDE 40 MG TAB PO SCH (08:09)
[2018-11-21] MEDS: MAGNESIUM OXIDE 400 MG TAB PO SCH (08:09)
[2018-11-21] MEDS: IVABRADINE HCL 5 MG TABLET PO SCH ×2 (08:09→20:10)
[2018-11-21] MEDS: FOLIC ACID 1 MG TAB PO SCH (08:09)
[2018-11-21] MEDS: AMIODARONE 200 MG TAB PO SCH (08:10)
[2018-11-21] MEDS: DOCUSATE SODIUM 100 MG CAP PO SCH ×2 (08:10→20:13)
[2018-11-21] MEDS: HYDROCODONE/APAP (10/325) TAB PO PRN (09:36)
[2018-11-21] MEDS: BISACODYL (EC) 5 MG TAB PO PRN (12:30)
[2018-11-21] MEDS: DIGOXIN 0.125 MG TAB PO SCH (12:32)
[2018-11-21 14:00] VITALS: BP 122/56; PULSE 60; RESP 18
[2018-11-21 20:00] VITALS: BP 101/56; PULSE 71; RESP 18
[2018-11-21] MEDS: ATORVASTATIN 20 MG TAB PO SCH (20:10)
[2018-11-21] MEDS: HYDROCODONE/APAP (5/325) TAB PO PRN (20:10)
--- NOTE | 2018-11-21 20:19 | CONS ---
Consult Date/Type/Reason Admit Date/Time Nov 11, 2018 at 10:32 Initial Consult Date 11/17/18 Type of Consultation: Urology Reason for Consultation Scrotal edema Requesting Provider: ÁLVARO MENCHACA MD Date/Time of Note DATE: 11/21/18 TIME: 20:17 Subjective Patient states that he is feeling better and the swelling is less. Objective Vitals Vital Signs Date Temp Pulse Resp B/P (MAP) Pulse Ox O2 O2 Flow FiO2 Time Delivery Rate 11/21/18 98.0 60 18 122/56 98 Room Air 14:00 (78) Intake and Output 11/20/18 11/20/18 11/21/18 1515:00 23:00 07:00 IntakeIntake Total 1000 ml OutputOutput Total 200 ml BalanceBalance 1000 ml -200 ml Exam The scrotal swelling has decreased but still significant. Results/Medications Result Diagram: 11/18/18 0554 11/18/18 0554 Home Meds Reported Medications Ivabradine HCl (Corlanor) 5 Mg Tablet, 5 MG PO BID 11/11/18 Atorvastatin Calcium (Atorvastatin Calcium) 20 Mg Tablet, 20 MG PO QHS 11/11/18 Carvedilol* (Carvedilol*) 3.125 Mg Tablet, 3.125 MG PO BID 11/11/18 Furosemide* (Furosemide*) 40 Mg Tablet, 40 MG PO DAILY 11/11/18 Folic Acid* (Folic Acid*) 1 Mg Tablet, 1 MG PO DAILY 11/11/18 Digoxin* (Digitek*) 125 Mcg Tablet, 0.125 MG PO DAILY 11/11/18 Magnesium Oxide* (Mag-Oxide*) 400 Mg Tablet, 400 MG PO DAILY 11/11/18 Amiodarone Hcl* (Amiodarone Hcl*) 200 Mg Tablet, 200 MG PO DAILY 11/11/18 Medications Current Medications Morphine Sulfate (morphine) 4 mg Q4H PRN IV severe pain 7-10 Last administered on 11/19/18at 17:24; Admin Dose 4 MG; Start 11/11/18 at 18:00 Amiodarone HCl (Cordarone) 200 mg DAILY PO Last administered on 11/21/18at 08:10; Admin Dose 200 MG; Start 11/11/18 at 20:30 Folic Acid (Folic Acid) 1 mg DAILY PO Last administered on 11/21/18 08:09; Admin Dose 1 MG; Start 11/11/18 at 20:30 Magnesium Oxide (Mag-Ox 400) 400 mg DAILY PO Last administered on 11/21/18 08:09; Admin Dose 400 MG; Start 11/11/18 at 20:30 Ivabradine (Corlanor) 5 mg BID PO Last administered on 11/21/18 20:10; Admin Dose 5 MG; Start 11/11/18 at 22:00 Digoxin (Digoxin) 0.125 mg DAILY@1300 PO Last administered on 11/21/18 12:32; Admin Dose 0.125 MG; Start 11/11/18 at 22:00 Acetaminophen/ Hydrocodone Bitart ([place] (5/325)) 1 tab Q4H PRN PO MODERATE PAIN LEVEL 4-6 Last administered on 11/21/18 20:10; Admin Dose 1 TAB; Start 11/12/18 at 16:00 Acetaminophen/ Hydrocodone Bitart ([place] (10/325)) 1 tab Q4H PRN PO MODERATE PAIN LEVEL 4-6 Last administered on 11/21/18 09:36; Admin Dose 1 TAB; Start 11/12/18 at 16:00 Atorvastatin Calcium (Lipitor) 20 mg QHS PO Last administered on 11/21/18 20:10; Admin Dose 20 MG; Start 11/12/18 at 21:00 Miscellaneous Information Patients own medicat... BID@10,16 XX ; Start 11/13/18 at 10:00 Furosemide (Lasix) 40 mg DAILY PO Last administered on 11/21/18 08:09; Admin Dose 40 MG; Start 11/14/18 at 09:00 Docusate Sodium (Colace) 100 mg BID PO Last administered on 11/21/18 08:10; Admin Dose 100 MG; Start 11/13/18 at 21:00 Hydromorphone HCl (Dilaudid) 1.5 mg Q4H PRN IV SEVERE PAIN LEVEL 7-10 Last administered on 11/21/18 17:43; Admin Dose 1.5 MG; Start 11/15/18 at 00:00 Lorazepam (Ativan) 1 mg Q4 PRN IV AGITATION/ANXIETY Last administered on 11/17/18 06:25; Admin Dose 1 MG; Start 11/14/18 at 23:00 Bisacodyl (Dulcolax) 10 mg DAILY PRN PO CONSTIPATION Last administered on 11/21/18at 12:30; Admin Dose 10 MG; Start 11/15/18 at 10:30 Assessment/Plan Hospital Course (Demo Recall) 58-year-old male underwent surgery for a very large incarcerated right inguinal hernia on 11/12/2018. It appears the hernia was very large and complex. A urological consultation was requested because of very large swelling of the scrotum. The the patient complains of pain when the scrotum is touched. He is able however to urinate and denies any problem voiding in the past. As the scrotum has been elevated on a towel the swelling has decreased and the patient is making good effort himself to keep the scrotum elevated. ZEINAB ARIZA MD Nov 21, 2018 20:19
--- NOTE | 2018-11-21 21:59 | PN ---
Date/Time of Note Date/Time of Note DATE: 11/21/18 TIME: 21:59 Assessment/Plan VTE Prophylaxis Risk score (from Nsg)>0 risk: 2 SCD applied (from Nsg): Yes Lines/Catheters IV Catheter Type (from Nrsg): Saline Lock Assessment/Plan Assessment/Plan - Large incarcerated right inguinal hernia, status post right inguinal hernia repair with mesh, removal of spermatic cord cord lesion and reconstruction of scrotum by Dr. Villalobos. Continue [place] and morphine as needed for pain and Zofran as needed for nausea. -Postoperative scrotal seroma. Dr. Ortiz is following in urology consultation. -Congestive heart failure, continue Lasix and Coreg -Status post recent permanent pacemaker insertion by Dr. Alba -Hyperlipidemia, continue statin Result Diagram: 11/18/1855311/18/18553 Exam/Review of Systems Exam Vitals Vital Signs Date Temp Pulse Resp B/P (MAP) Pulse Ox O2 O2 Flow FiO2 Time Delivery Rate 11/21/18 98.0 60 18 122/56 98 Room Air 14:00 (78) Intake and Output 11/20/18 11/20/18 11/21/18 1515:00 23:00 07:00 IntakeIntake Total 1000 ml OutputOutput Total 200 ml BalanceBalance 1000 ml -200 ml Medications Medication Current Medications Morphine Sulfate (morphine) 4 mg Q4H PRN IV severe pain 7-10 Last administered on 11/19/18at 17:24; Admin Dose 4 MG; Start 11/11/18 at 18:00 Amiodarone HCl (Cordarone) 200 mg DAILY PO Last administered on 11/21/18 08:1 0; Admin Dose 200 MG; Start 11/11/18 at 20:30 Folic Acid (Folic Acid) 1 mg DAILY PO Last administered on 11/21/18 08:09; Admin Dose 1 MG; Start 11/11/18 at 20:30 Magnesium Oxide (Mag-Ox 400) 400 mg DAILY PO Last administered on 11/21/18 08:09; Admin Dose 400 MG; Start 11/11/18 at 20:30 Ivabradine (Corlanor) 5 mg BID PO Last administered on 11/21/18 20:10; Admin Dose 5 MG; Start 11/11/18 at 22:00 Digoxin (Digoxin) 0.125 mg DAILY@1300 PO Last administered on 11/21/18 12:32; Admin Dose 0.125 MG; Start 11/11/18 at 22:00 Acetaminophen/ Hydrocodone Bitart ([place] (5/325)) 1 tab Q4H PRN PO MODERATE PAIN LEVEL 4-6 Last administered on 11/21/18 20:10; Admin Dose 1 TAB; Start 11/12/18 at 16:00 Acetaminophen/ Hydrocodone Bitart ([place] (10/325)) 1 tab Q4H PRN PO MODERATE PAIN LEVEL 4-6 Last administered on 11/21/18 09:36; Admin Dose 1 TAB; Start 11/12/18 at 16:00 Atorvastatin Calcium (Lipitor) 20 mg QHS PO Last administered on 11/21/18 20:10; Admin Dose 20 MG; Start 11/12/18 at 21:00 Miscellaneous Information Patients own medicat... BID@10,16 XX ; Start 11/13/18 at 10:00 Furosemide (Lasix) 40 mg DAILY PO Last administered on 11/21/18 08:09; Admin Dose 40 MG; Start 11/14/18 at 09:00 Docusate Sodium (Colace) 100 mg BID PO Last administered on 11/21/18 08:10; Admin Dose 100 MG; Start 11/13/18 at 21:00 Hydromorphone HCl (Dilaudid) 1.5 mg Q4H PRN IV SEVERE PAIN LEVEL 7-10 Last administered on 11/21/18 17:43; Admin Dose 1.5 MG; Start 11/15/18 at 00:00 Lorazepam (Ativan) 1 mg Q4 PRN IV AGITATION/ANXIETY Last administered on 11/17/18 06:25; Admin Dose 1 MG; Start 11/14/18 at 23:00 Bisacodyl (Dulcolax) 10 mg DAILY PRN PO CONSTIPATION Last administered on 11/21/18 12:30; Admin Dose 10 MG; Start 11/15/18 at 10:30 MARY LOU MURRIETA Nov 21, 2018 9:59 pm
[2018-11-22] MEDS: HYDROCODONE/APAP (5/325) TAB PO PRN ×2 (00:56→13:55)
[2018-11-22 02:00] VITALS: BP 98/58; PULSE 69; RESP 19
[2018-11-22] MEDS: HYDROmorphONE 2 MG/ML SYG IV PRN ×3 (02:43→12:22)
[2018-11-22 07:45] VITALS: BP 100/57; PULSE 69; RESP 18
[2018-11-22] MEDS: FUROSEMIDE 40 MG TAB PO SCH (09:00)
[2018-11-22] MEDS: DOCUSATE SODIUM 100 MG CAP PO SCH ×2 (09:31→20:20)
[2018-11-22] MEDS: IVABRADINE HCL 5 MG TABLET PO SCH ×2 (09:31→20:19)
[2018-11-22] MEDS: FOLIC ACID 1 MG TAB PO SCH (09:32)
[2018-11-22] MEDS: AMIODARONE 200 MG TAB PO SCH (09:32)
[2018-11-22] MEDS: MAGNESIUM OXIDE 400 MG TAB PO SCH (09:32)
[2018-11-22] MEDS: DIGOXIN 0.125 MG TAB PO SCH (13:55)
[2018-11-22 14:04] VITALS: BP 105/59; PULSE 63; RESP 18
[2018-11-22] MEDS: HYDROmorphONE 1 MG/ML SYG IV PRN ×2 (16:53→21:07)
[2018-11-22] MEDS: HYDROCODONE/APAP (10/325) TAB PO PRN (18:47)
--- NOTE | 2018-11-22 20:02 | CONS ---
Consult Date/Type/Reason Admit Date/Time Nov 11, 2018 at 10:32 Initial Consult Date 11/17/18 Type of Consultation: Urology Reason for Consultation Scrotal swelling Requesting Provider: ÁLVARO MENCHACA MD Date/Time of Note DATE: 11/22/18 TIME: 20:00 Subjective Patient states that he is feeling better and the swelling is decreasing little by little. Objective Vitals Vital Signs Date Temp Pulse Resp B/P (MAP) Pulse Ox O2 O2 Flow FiO2 Time Delivery Rate 11/22/18 97.6 63 18 105/59 98 Room Air 14:04 (74) Intake and Output 11/21/18 11/21/18 11/22/18 1515:00 23:00 07:00 IntakeIntake Total 600 ml 100 ml OutputOutput Total 400 ml BalanceBalance 200 ml 100 ml Exam The scrotal swelling is decreasing. He still have hard area in the right scrotal area but that is improving. Results/Medications Result Diagram: 11/18/18 0554 11/18/18 0554 Home Meds Reported Medications Ivabradine HCl (Corlanor) 5 Mg Tablet, 5 MG PO BID 11/11/18 Atorvastatin Calcium (Atorvastatin Calcium) 20 Mg Tablet, 20 MG PO QHS 11/11/18 Carvedilol* (Carvedilol*) 3.125 Mg Tablet, 3.125 MG PO BID 11/11/18 Furosemide* (Furosemide*) 40 Mg Tablet, 40 MG PO DAILY 11/11/18 Folic Acid* (Folic Acid*) 1 Mg Tablet, 1 MG PO DAILY 11/11/18 Digoxin* (Digitek*) 125 Mcg Tablet, 0.125 MG PO DAILY 11/11/18 Magnesium Oxide* (Mag-Oxide*) 400 Mg Tablet, 400 MG PO DAILY 11/11/18 Amiodarone Hcl* (Amiodarone Hcl*) 200 Mg Tablet, 200 MG PO DAILY 11/11/18 Medications Current Medications Morphine Sulfate (morphine) 4 mg Q4H PRN IV severe pain 7-10 Last administered on 11/19/18at 17:24; Admin Dose 4 MG; Start 11/11/18 at 18:00 Amiodarone HCl (Cordarone) 200 mg DAILY PO Last administered on 11/22/18at 09:32; Admin Dose 200 MG; Start 11/11/18 at 20:30 Folic Acid (Folic Acid) 1 mg DAILY PO Last administered on 11/22/18 09:32; Admin Dose 1 MG; Start 11/11/18 at 20:30 Magnesium Oxide (Mag-Ox 400) 400 mg DAILY PO Last administered on 11/22/18 09:32; Admin Dose 400 MG; Start 11/11/18 at 20:30 Ivabradine (Corlanor) 5 mg BID PO Last administered on 11/22/18 09:31; Admin Dose 5 MG; Start 11/11/18 at 22:00 Digoxin (Digoxin) 0.125 mg DAILY@1300 PO Last administered on 11/22/18 13:55; Admin Dose 0.125 MG; Start 11/11/18 at 22:00 Acetaminophen/ Hydrocodone Bitart ([place] (5/325)) 1 tab Q4H PRN PO MODERATE PAIN LEVEL 4-6 Last administered on 11/22/18 13:55; Admin Dose 1 TAB; Start 11/12/18 at 16:00 Acetaminophen/ Hydrocodone Bitart ([place] (10/325)) 1 tab Q4H PRN PO MODERATE PAIN LEVEL 4-6 Last administered on 11/22/18 18:47; Admin Dose 1 TAB; Start 11/12/18 at 16:00 Atorvastatin Calcium (Lipitor) 20 mg QHS PO Last administered on 11/21/18 20:10; Admin Dose 20 MG; Start 11/12/18 at 21:00 Miscellaneous Information Patients own medicat... BID@10,16 XX ; Start 11/13/18 at 10:00 Furosemide (Lasix) 40 mg DAILY PO Last administered on 11/21/18 08:09; Admin Dose 40 MG; Start 11/14/18 at 09:00 Docusate Sodium (Colace) 100 mg BID PO Last administered on 11/22/18 09:31; Admin Dose 100 MG; Start 11/13/18 at 21:00 Lorazepam (Ativan) 1 mg Q4 PRN IV AGITATION/ANXIETY Last administered on 11/17/18 06:25; Admin Dose 1 MG; Start 11/14/18 at 23:00 Bisacodyl (Dulcolax) 10 mg DAILY PRN PO CONSTIPATION Last administered on 12:30; Admin Dose 10 MG; Start 11/15/18 at 10:30 Hydromorphone HCl (Dilaudid) 1 mg Q4H PRN IV SEVERE PAIN LEVEL 7-10 Last administered on 11/22/18at 16:53; Admin Dose 1 MG; Start 11/22/18 at 16:00 Assessment/Plan Hospital Course (Demo Recall) 58-year-old male underwent surgery for a very large incarcerated right inguinal hernia on 11/12/2018. It appears the hernia was very large and complex. A urological consultation was requested because of very large swelling of the scrotum. The the patient complains of pain when the scrotum is touched. He is able however to urinate and denies any problem voiding in the past. As the scrotum has been elevated on a towel the swelling has decreased and the patient is making good effort himself to keep the scrotum elevated and he continues to improve. Urologically he does not need any other intervention. He knows the need to elevate the scrotum on a towel until all the swelling goes away. ZEINAB ARIZA MD Nov 22, 2018 20:02
[2018-11-22] MEDS: ATORVASTATIN 20 MG TAB PO SCH (20:19)
[2018-11-22 21:33] VITALS: BP 105/59; PULSE 71; RESP 18
--- NOTE | 2018-11-22 23:05 | PN ---
Date/Time of Note Date/Time of Note DATE: 11/22/18 TIME: 23:05 Assessment/Plan VTE Prophylaxis Risk score (from Nsg)>0 risk: 3 SCD applied (from Nsg): Yes Pharmacological prophylaxis: other Lines/Catheters IV Catheter Type (from Nrsg): Saline Lock Assessment/Plan Result Diagram: 11/18/18 0554 11/18/18 0554 Exam/Review of Systems Exam Vitals Vital Signs Date Temp Pulse Resp B/P (MAP) Pulse Ox O2 O2 Flow FiO2 Time Delivery Rate 11/22/18 97.2 71 18 105/59 97 21:33 (74) 11/22/18 Room Air 14:04 Intake and Output 11/21/18 11/21/18 11/22/18 1515:00 23:00 07:00 IntakeIntake Total 600 ml 100 ml OutputOutput Total 400 ml BalanceBalance 200 ml 100 ml Medications Medication Current Medications Morphine Sulfate (morphine) 4 mg Q4H PRN IV severe pain 7-10 Last administered on 11/19/18 17:24; Admin Dose 4 MG; Start 11/11/18 at 18:00 Amiodarone HCl (Cordarone) 200 mg DAILY PO Last administered on 11/22/18 09:32; Admin Dose 200 MG; Start 11/11/18 at 20:30 Folic Acid (Folic Acid) 1 mg DAILY PO Last administered on 11/22/18 09:32; Admin Dose 1 MG; Start 11/11/18 at 20:30 Magnesium Oxide (Mag-Ox 400) 400 mg DAILY PO Last administered on 11/22/18 09:32; Admin Dose 400 MG; Start 11/11/18 at 20:30 Ivabradine (Corlanor) 5 mg BID PO Last administered on 11/22/18 20:19; Admin Dose 5 MG; Start 11/11/18 at 22:00 Digoxin (Digoxin) 0.125 mg DAILY@1300 PO Last administered on 11/22/18 13:55; Admin Dose 0.125 MG; Start 11/11/18 at 22:00 Acetaminophen/ Hydrocodone Bitart ([place] (5/325)) 1 tab Q4H PRN PO MODERATE PAIN LEVEL 4-6 Last administered on 11/22/18 13:55; Admin Dose 1 TAB; Start 11/12/18 at 16:00 Acetaminophen/ Hydrocodone Bitart ([place] (10/325)) 1 tab Q4H PRN PO MODERATE PAIN LEVEL 4-6 Last administered on 11/22/18 18:47; Admin Dose 1 TAB; Start 11/12/18 at 16:00 Atorvastatin Calcium (Lipitor) 20 mg QHS PO Last administered on 11/22/18 20:19; Admin Dose 20 MG; Start 11/12/18 at 21:00 Miscellaneous Information Patients own medicat... BID@ XX ; Start 11/13/18 at 10:00 Furosemide (Lasix) 40 mg DAILY PO Last administered on 11/21/18 08:09; Admin Dose 40 MG; Start 11/14/18 at 09:00 Docusate Sodium (Colace) 100 mg BID PO Last administered on 11/22/18 09:31; Admin Dose 100 MG; Start 11/13/18 at 21:00 Lorazepam (Ativan) 1 mg Q4 PRN IV AGITATION/ANXIETY Last administered on 11/17/18 06:25; Admin Dose 1 MG; Start 11/14/18 at 23:00 Bisacodyl (Dulcolax) 10 mg DAILY PRN PO CONSTIPATION Last administered on 11/21/18 12:30; Admin Dose 10 MG; Start 11/15/18 at 10:30 Hydromorphone HCl (Dilaudid) 1 mg Q4H PRN IV SEVERE PAIN LEVEL 7-10 Last administered on 11/22/18 21:07; Admin Dose 1 MG; Start 11/22/18 at 16:00 MARY LOU MURRIETA Nov 22, 2018 23:05
[2018-11-23] MEDS: HYDROmorphONE 1 MG/ML SYG IV PRN ×3 (01:07→09:21)
[2018-11-23 02:00] VITALS: BP 104/64; PULSE 63; RESP 18
[2018-11-23 07:48] VITALS: BP 104/67; PULSE 72; RESP 18
[2018-11-23] MEDS: IVABRADINE HCL 5 MG TABLET PO SCH ×2 (08:13→21:42)
[2018-11-23] MEDS: MAGNESIUM OXIDE 400 MG TAB PO SCH (08:13)
[2018-11-23] MEDS: FOLIC ACID 1 MG TAB PO SCH (08:13)
[2018-11-23] MEDS: DOCUSATE SODIUM 100 MG CAP PO SCH ×2 (08:13→21:43)
[2018-11-23] MEDS: AMIODARONE 200 MG TAB PO SCH (08:14)
[2018-11-23] MEDS: FUROSEMIDE 40 MG TAB PO SCH (08:14)
[2018-11-23] MEDS: DIGOXIN 0.125 MG TAB PO SCH (14:03)
[2018-11-23 14:22] VITALS: BP 108/65; PULSE 69; RESP 18
--- NOTE | 2018-11-23 15:17 | QN ---
Documentation Comment Patient seen and examined. Seems to be improving and swelling seems to be going down and pain slowly resolving. Discharge from surgical standpoint once cleared from medicine. Thank you for your assistance in caring for this postop patient. PETRA WOLFF Nov 23, 2018 15:17
--- NOTE | 2018-11-23 18:16 | CONS ---
Consult Date/Type/Reason Admit Date/Time Nov 11, 2018 at 10:32 Initial Consult Date 11/17/18 Type of Consultation: Urology Reason for Consultation Scrotal swelling Requesting Provider: ÁLVARO MENCHACA MD Date/Time of Note DATE: 11/23/18 TIME: 18:15 Subjective Patient is feeling much better and the swelling is decreasing. Objective Vitals Vital Signs Date Temp Pulse Resp B/P (MAP) Pulse Ox O2 O2 Flow FiO2 Time Delivery Rate 11/23/18 98.1 69 18 108/65 97 Room Air 14:22 (79) Intake and Output 11/22/18 11/22/18 11/23/18 1515:00 23:00 07:00 IntakeIntake Total 1300 ml OutputOutput Total 150 ml BalanceBalance 1150 ml Exam The scrotal swelling is decreasing. It is still however large and may take some time for it to subside completely. Results/Medications Result Diagram: 11/23/18 0535 11/23/18 0535 Results 24 hrs Laboratory Tests Test 11/23/18 05:35 White Blood Count 6.7 Red Blood Count 3.91 L Hemoglobin 10.8 L Hematocrit 35.6 L Mean Corpuscular Volume 91.0 Mean Corpuscular Hemoglobin 27.6 L Mean Corpuscular Hemoglobin Concent 30.3 L Red Cell Distribution Width 16.9 H Platelet Count 354 # Mean Platelet Volume 8.4 Immature Granulocytes % 0.300 Neutrophils % 68.0 Lymphocytes % 18.1 Monocytes % 10.3 Eosinophils % 2.7 Basophils % 0.6 Nucleated Red Blood Cells % 0.0 Immature Granulocytes # 0.020 Neutrophils # 4.6 Lymphocytes # 1.2 Monocytes # 0.7 Eosinophils # 0.2 Basophils # 0.0 Nucleated Red Blood Cells # 0.0 Sodium Level 140 Potassium Level 4.3 Chloride Level 106 Carbon Dioxide Level 26 Anion Gap 8 Blood Urea Nitrogen 12 Creatinine 0.72 Est Glomerular Filtrat Rate mL/min > 60 Glucose Level 91 Calcium Level 8.9 Home Meds Reported Medications Ivabradine HCl (Corlanor) 5 Mg Tablet, 5 MG PO BID 11/11/18 Atorvastatin Calcium (Atorvastatin Calcium) 20 Mg Tablet, 20 MG PO QHS 11/11/18 Carvedilol* (Carvedilol*) 3.125 Mg Tablet, 3.125 MG PO BID 11/11/18 Furosemide* (Furosemide*) 40 Mg Tablet, 40 MG PO DAILY 11/11/18 Folic Acid* (Folic Acid*) 1 Mg Tablet, 1 MG PO DAILY 11/11/18 Digoxin* (Digitek*) 125 Mcg Tablet, 0.125 MG PO DAILY 11/11/18 Magnesium Oxide* (Mag-Oxide*) 400 Mg Tablet, 400 MG PO DAILY 11/11/18 Amiodarone Hcl* (Amiodarone Hcl*) 200 Mg Tablet, 200 MG PO DAILY 11/11/18 Medications Current Medications Morphine Sulfate (morphine) 4 mg Q4H PRN IV severe pain 7-10 Last administered on 11/19/18 17:24; Admin Dose 4 MG; Start 11/11/18 at 18:00 Amiodarone HCl (Cordarone) 200 mg DAILY PO Last administered on 11/23/18 08:14; Admin Dose 200 MG; Start 11/11/18 at 20:30 Folic Acid (Folic Acid) 1 mg DAILY PO Last administered on 11/23/18 08:13; Admin Dose 1 MG; Start 11/11/18 at 20:30 Magnesium Oxide (Mag-Ox 400) 400 mg DAILY PO Last administered on 11/23/18 08:13; Admin Dose 400 MG; Start 11/11/18 at 20:30 Ivabradine (Corlanor) 5 mg BID PO Last administered on 11/23/18 08:13; Admin Dose 5 MG; Start 11/11/18 at 22:00 Digoxin (Digoxin) 0.125 mg DAILY@1300 PO Last administered on 11/23/18 14:03; Admin Dose 0.125 MG; Start 11/11/18 at 22:00 Acetaminophen/ Hydrocodone Bitart ([place] (5/325)) 1 tab Q4H PRN PO MODERATE PAIN LEVEL 4-6 Last administered on 11/22/18 13:55; Admin Dose 1 TAB; Start 11/12/18 at 16:00 Acetaminophen/ Hydrocodone Bitart ([place] (10/325)) 1 tab Q4H PRN PO MODERATE PAIN LEVEL 4-6 Last administered on 11/22/18 18:47; Admin Dose 1 TAB; Start at 16:00 Atorvastatin Calcium (Lipitor) 20 mg QHS PO Last administered on 11/22/18 20:19; Admin Dose 20 MG; Start 11/12/18 at 21:00 Miscellaneous Information Patients own medicat... BID@,16 XX ; Start 11/13/18 at 10:00 Furosemide (Lasix) 40 mg DAILY PO Last administered on 11/21/18at 08:09; Admin Dose 40 MG; Start 11/14/18 at 09:00 Docusate Sodium (Colace) 100 mg BID PO Last administered on 11/23/18at 08:13; Admin Dose 100 MG; Start 11/13/18 at 21:00 Lorazepam (Ativan) 1 mg Q4 PRN IV AGITATION/ANXIETY Last administered on 11/17/18at 06:25; Admin Dose 1 MG; Start 11/14/18 at 23:00 Bisacodyl (Dulcolax) 10 mg DAILY PRN PO CONSTIPATION Last administered on 11/21/18at 12:30; Admin Dose 10 MG; Start 11/15/18 at 10:30 Assessment/Plan Hospital Course (Demo Recall) 58-year-old male underwent surgery for a very large incarcerated right inguinal hernia on 11/12/2018. It appears the hernia was very large and complex. A urological consultation was requested because of very large swelling of the scrotum. The the patient complains of pain when the scrotum is touched. He is able however to urinate and denies any problem voiding in the past. As the scrotum has been elevated on a towel the swelling has decreased and the patient is making good effort himself to keep the scrotum elevated and he continues to improve. Urologically he does not need any other intervention. He knows the need to elevate the scrotum on a towel until all the swelling goes away and that may take some time weeks to months. ZEINAB ARIZA MD Nov 23, 2018 18:16
--- NOTE | 2018-11-23 18:34 | PN ---
DATE: 11/23/2018 SUBJECTIVE: Follow up on right inguinal hernia, scrotal swelling, CHF. The patient is status post s urgery for a very large incarcerated right inguinal hernia and had postoperative scrotal swelling. T he patient denies any chest pain or shortness of breath. No reported fever or chills. PHYSICAL EXAMINATION: VITAL SIGNS: Temperature 98.1, pulse 69, respirations 18, blood pressure 108/65, O2 saturation 97% o n room air. HEENT: No eye discharge or redness. NECK: No mass. CHEST: Fairly clear. CARDIOVASCULAR: S1, S2 normal. ABDOMEN: Soft, nondistended, nontender. Incision clean. EXTREMITIES: Right scrotum swelling is still present significantly. IMPRESSION: 1. Very large right incarcerated inguinal hernia, status post surgery. 2. Chronic congestive heart failure, currently euvolemic, status post pacemaker placement. 3. Postoperative scrotal swelling. The patient was seen by Dr. Soler yesterday and recommended to continue conservative treatment. He had been told to elevate the scrotum on a towel. However, he i s not compliant with that. DISPOSITION: The patient initially had agreed to go to his friend's house today; however, now declin es to go. He says he will get his own place tomorrow and he would rather go there. Meanwhile, we wi ll discontinue his IV Dilaudid and continue [place] for pain control. Dictated By: ÁLVARO ALY/JUAN C Conf#: [id number] DID#: [id number] CC: PETRA WOLFF;*EndCC*
[2018-11-23 20:20] VITALS: BP 116/68; PULSE 78; RESP 20
[2018-11-23] MEDS: morphine 4 MG/ML VIAL IV PRN (21:06)
[2018-11-23] MEDS: ATORVASTATIN 20 MG TAB PO SCH (21:41)
[2018-11-24 02:22] VITALS: BP 105/60; PULSE 71
[2018-11-24] MEDS: morphine 4 MG/ML VIAL IV PRN ×2 (02:49→20:49)
[2018-11-24 08:12] VITALS: BP 109/63; PULSE 73; RESP 19
[2018-11-24] MEDS: DOCUSATE SODIUM 100 MG CAP PO SCH ×2 (08:44→20:49)
[2018-11-24] MEDS: IVABRADINE HCL 5 MG TABLET PO SCH ×2 (08:44→20:49)
[2018-11-24] MEDS: FOLIC ACID 1 MG TAB PO SCH (08:44)
[2018-11-24] MEDS: AMIODARONE 200 MG TAB PO SCH (08:44)
[2018-11-24] MEDS: MAGNESIUM OXIDE 400 MG TAB PO SCH (08:44)
[2018-11-24] MEDS: FUROSEMIDE 40 MG TAB PO SCH (08:45)
[2018-11-24] MEDS: HYDROCODONE/APAP (10/325) TAB PO PRN ×3 (08:53→18:13)
--- NOTE | 2018-11-24 10:53 | PN ---
Date/Time of Note Date/Time of Note DATE: 11/24/18 TIME: 10:52 Assessment/Plan VTE Prophylaxis Risk score (from Nsg)>0 risk: 3 SCD applied (from Nsg): No Lines/Catheters IV Catheter Type (from Nrsg): Saline Lock Assessment/Plan Assessment/Plan IMPRESSION: 1. Status post L2 through L5 anterior lumbar interbody fusion with posterior fixation L2 through S1. 2. Chronic neck and back pain. 3. Hypertension. 4. Dyslipidemia. 5. High opiate tolerance. Result Diagram: 11/24/18 0508 11/24/18 0508 Results 24hrs Laboratory Tests Test 11/24/18 05:08 White Blood Count 8.5 # Red Blood Count 3.92 L Hemoglobin 10.9 L Hematocrit 35.4 L Mean Corpuscular Volume 90.3 Mean Corpuscular Hemoglobin 27.8 L Mean Corpuscular Hemoglobin Concent 30.8 L Red Cell Distribution Width 17.2 H Platelet Count 396 Mean Platelet Volume 8.6 Immature Granulocytes % 0.200 Neutrophils % 74.3 Lymphocytes % 14.2 L Monocytes % 9.4 Eosinophils % 1.4 Basophils % 0.5 Nucleated Red Blood Cells % 0.0 Immature Granulocytes # 0.020 Neutrophils # 6.3 Lymphocytes # 1.2 Monocytes # 0.8 Eosinophils # 0.1 Basophils # 0.0 Nucleated Red Blood Cells # 0.0 Sodium Level 141 Potassium Level 4.0 Chloride Level 108 Carbon Dioxide Level 22 Anion Gap 11 Blood Urea Nitrogen 8 Creatinine 0.63 Est Glomerular Filtrat Rate mL/min > 60 Glucose Level 85 Calcium Level 8.9 Exam/Review of Systems Exam Vitals Vital Signs Date Temp Pulse Resp B/P (MAP) Pulse Ox O2 O2 Flow FiO2 Time Delivery Rate 11/24/18 98.7 73 19 109/63 94 08:12 (78) 11/23/18 Room Air 14:22 Intake and Output 11/23/18 11/23/18 11/24/18 1414:59 22:59 06:59 IntakeIntake Total 880 ml 350 ml OutputOutput Total 700 ml 500 ml BalanceBalance 180 ml -150 ml Results Results 24hrs Laboratory Tests Test 11/24/18 05:08 White Blood Count 8.5 # Red Blood Count 3.92 L Hemoglobin 10.9 L Hematocrit 35.4 L Mean Corpuscular Volume 90.3 Mean Corpuscular Hemoglobin 27.8 L Mean Corpuscular Hemoglobin Concent 30.8 L Red Cell Distribution Width 17.2 H Platelet Count 396 Mean Platelet Volume 8.6 Immature Granulocytes % 0.200 Neutrophils % 74.3 Lymphocytes % 14.2 L Monocytes % 9.4 Eosinophils % 1.4 Basophils % 0.5 Nucleated Red Blood Cells % 0.0 Immature Granulocytes # 0.020 Neutrophils # 6.3 Lymphocytes # 1.2 Monocytes # 0.8 Eosinophils # 0.1 Basophils # 0.0 Nucleated Red Blood Cells # 0.0 Sodium Level 141 Potassium Level 4.0 Chloride Level 108 Carbon Dioxide Level 22 Anion Gap 11 Blood Urea Nitrogen 8 Creatinine 0.63 Est Glomerular Filtrat Rate mL/min > 60 Glucose Level 85 Calcium Level 8.9 Medications Medication Current Medications Morphine Sulfate (morphine) 4 mg Q4H PRN IV severe pain 7-10 Last administered on 11/24/18 02:49; Admin Dose 4 MG; Start 11/11/18 at 18:00 Amiodarone HCl (Cordarone) 200 mg DAILY PO Last administered on 11/24/18 08:44; Admin Dose 200 MG; Start 11/11/18 at 20:30 Folic Acid (Folic Acid) 1 mg DAILY PO Last administered on 11/24/18 08:44; Admin Dose 1 MG; Start 11/11/18 at 20:30 Magnesium Oxide (Mag-Ox 400) 400 mg DAILY PO Last administered on 11/24/18 08:44; Admin Dose 400 MG; Start 11/11/18 at 20:30 Ivabradine (Corlanor) 5 mg BID PO Last administered on 11/24/18 08:44; Admin Dose 5 MG; Start 11/11/18 at 22:00 Digoxin (Digoxin) 0.125 mg DAILY@1300 PO Last administered on 11/23/18 14:03; Admin Dose 0.125 MG; Start 11/11/18 at 22:00 Acetaminophen/ Hydrocodone Bitart ([place] (5/325)) 1 tab Q4H PRN PO MODERATE PAIN LEVEL 4-6 Last administered on 11/22/18 13:55; Admin Dose 1 TAB; Start 11/12/18 at 16:00 Acetaminophen/ Hydrocodone Bitart ([place] (10/325)) 1 tab Q4H PRN PO MODERATE PAIN LEVEL 4-6 Last administered on 11/24/18 08:53; Admin Dose 1 TAB; Start 11/12/18 at 16:00 Atorvastatin Calcium (Lipitor) 20 mg QHS PO Last administered on 11/23/18 21:41; Admin Dose 20 MG; Start 11/12/18 at 21:00 Miscellaneous Information Patients own medicat... BID@10,16 XX ; Start 11/13/18 at 10:00 Furosemide (Lasix) 40 mg DAILY PO Last administered on 11/21/18 08:09; Admin Dose 40 MG; Start 11/14/18 at 09:00 Docusate Sodium (Colace) 100 mg BID PO Last administered on 11/24/18 08:44; Admin Dose 100 MG; Start 11/13/18 at 21:00 Lorazepam (Ativan) 1 mg Q4 PRN IV AGITATION/ANXIETY Last administered on 11/17/18 06:25; Admin Dose 1 MG; Start 11/14/18 at 23:00 Bisacodyl (Dulcolax) 10 mg DAILY PRN PO CONSTIPATION Last administered on 11/21/18 12:30; Admin Dose 10 MG; Start 11/15/18 at 10:30 MARY LOU MURRIETA Nov 24, 2018 10:53
[2018-11-24] MEDS: DIGOXIN 0.125 MG TAB PO SCH (13:36)
[2018-11-24 14:42] VITALS: BP 95/59; PULSE 71; RESP 18
[2018-11-24] MEDS ORDERED: HYDR-3609 PO (16:30)
[2018-11-24 20:19] VITALS: BP 98/64; PULSE 88; RESP 20
[2018-11-24 20:39] VITALS: BP 101/58; PULSE 70
[2018-11-24] MEDS: ATORVASTATIN 20 MG TAB PO SCH (20:49)
[2018-11-25] MEDS: morphine 4 MG/ML VIAL IV PRN (01:09)
[2018-11-25 01:56] VITALS: BP 96/60; PULSE 62; RESP 18
[2018-11-25] MEDS: HYDROCODONE/APAP (10/325) TAB PO PRN (07:05)
[2018-11-25 08:27] VITALS: BP 98/57; PULSE 67; RESP 18
[2018-11-25] MEDS: FUROSEMIDE 40 MG TAB PO SCH (09:00)
[2018-11-25] MEDS: AMIODARONE 200 MG TAB PO SCH (09:11)
[2018-11-25] MEDS: IVABRADINE HCL 5 MG TABLET PO SCH (09:11)
[2018-11-25] MEDS: DOCUSATE SODIUM 100 MG CAP PO SCH (09:11)
[2018-11-25] MEDS: MAGNESIUM OXIDE 400 MG TAB PO SCH (09:11)
[2018-11-25] MEDS: FOLIC ACID 1 MG TAB PO SCH (09:11)
--- NOTE | 2018-11-25 11:39 | PN ---
Date/Time of Note Date/Time of Note DATE: 11/25/18 TIME: 11:39 Assessment/Plan VTE Prophylaxis Risk score (from Nsg)>0 risk: 4 SCD applied (from Nsg): Yes Lines/Catheters IV Catheter Type (from Nrsg): Saline Lock Assessment/Plan Assessment/Plan IMPRESSION: 1. Status post L2 through L5 anterior lumbar interbody fusion with posterior fixation L2 through S1. 2. Chronic neck and back pain. 3. Hypertension. 4. Dyslipidemia. 5. High opiate tolerance. Result Diagram: 11/24/18 0508 11/24/18 050 Exam/Review of Systems Exam Vitals Vital Signs Date Temp Pulse Resp B/P (MAP) Pulse Ox O2 O2 Flow FiO2 Time Delivery Rate 11/25/18 98.2 67 18 98/57 (71) 96 Room Air 08:27 Intake and Output 11/24/18 11/24/18 11/25/18 1515:00 23:00 07:00 IntakeIntake Total 480 ml 240 ml 250 ml BalanceBalance 480 ml 240 ml 250 ml Medications Medication Current Medications Morphine Sulfate (morphine) 4 mg Q4H PRN IV severe pain 7-10 Last administered on 11/25/18 01:09; Admin Dose 4 MG; Start 11/11/18 at 18:00 Amiodarone HCl (Cordarone) 200 mg DAILY PO Last administered on 11/25/18 09:11; Admin Dose 200 MG; Start 11/11/18 at 20:30 Folic Acid (Folic Acid) 1 mg DAILY PO Last administered on 11/25/18 09:11; Admin Dose 1 MG; Start 11/11/18 at 20:30 Magnesium Oxide (Mag-Ox 400) 400 mg DAILY PO Last administered on 11/25/18 09:11; Admin Dose 400 MG; Start 11/11/18 at 20:30 Ivabradine (Corlanor) 5 mg BID PO Last administered on 11/25/18 09:11; Admin Dose 5 MG; Start 11/11/18 at 22:00 Digoxin (Digoxin) 0.125 mg DAILY@1300 PO Last administered on 11/24/18 13:36; Admin Dose 0.125 MG; Start 11/11/18 at 22:00 Acetaminophen/ Hydrocodone Bitart ([place] (5/325)) 1 tab Q4H PRN PO MODERATE PAIN LEVEL 4-6 Last administered on 11/22/18 13:55; Admin Dose 1 TAB; Start 11/12/18 at 16:00 Acetaminophen/ Hydrocodone Bitart ([place] (10/325)) 1 tab Q4H PRN PO MODERATE PAIN LEVEL 4-6 Last administered on 11/25/18 07:05; Admin Dose 1 TAB; Start 11/12/18 at 16:00 Atorvastatin Calcium (Lipitor) 20 mg QHS PO Last administered on 11/24/18 20:49; Admin Dose 20 MG; Start 11/12/18 at 21:00 Miscellaneous Information Patients own medicat... BID@,16 XX ; Start 11/13/18 at 10:00 Furosemide (Lasix) 40 mg DAILY PO Last administered on 11/21/18 08:09; Admin Dose 40 MG; Start 11/14/18 at 09:00 Docusate Sodium (Colace) 100 mg BID PO Last administered on 11/25/18 09:11; Admin Dose 100 MG; Start 11/13/18 at 21:00 Lorazepam (Ativan) 1 mg Q4 PRN IV AGITATION/ANXIETY Last administered on 11/17/18 06:25; Admin Dose 1 MG; Start 11/14/18 at 23:00 Bisacodyl (Dulcolax) 10 mg DAILY PRN PO CONSTIPATION Last administered on 11/21/18 12:30; Admin Dose 10 MG; Start 11/15/18 at 10:30 MARY LOU MURRIETA Nov 25, 2018 11:39
[2018-11-25] MEDS: DIGOXIN 0.125 MG TAB PO SCH (12:28)
[2018-11-25 15:20] VITALS: BP 110/68; PULSE 64; RESP 18
== END 2018-11-25 15:00 | disposition home or self-care (01) | DRG 351 ==
LOC: REC 10:32 → EDSTATUS 13:00 → MS1 16:30 → 6WM 11-12 16:57 → PP2 11-20 19:11
PROVIDERS: ADMIT Surgery Surgical Critical Care; ATTEND Internal Medicine
PROC: 0VQ50ZZ Repair Scrotum, Open Approach (ICD-10-PCS; 2018-11-12)
PROC: 0YU50JZ Supplement Right Inguinal Region with Synthetic Substitute, Open Approach (ICD-10-PCS; principal; 2018-11-12 11:30)
DX: K40.30 Unilateral inguinal hernia, with obstruction, without gangrene, not specified as recurrent (principal); N99.843 Postprocedural seroma of a genitourinary system organ or structure following other procedure; N50.89 Other specified disorders of the male genital organs; I11.0 Hypertensive heart disease with heart failure; I50.9 Heart failure, unspecified; E78.5 Hyperlipidemia, unspecified; Z95.0 Presence of cardiac pacemaker; Z79.82 Long term (current) use of aspirin
CPT/HCPCS: 71045; 80048; 80053; 81001; 83735; 83880; 85025; 85610; 85730; 88302; 93005; 97116; 97163; 97530; C1781; J0690; J1170; J1885; J2060; J2250; J2270; J2405; J2710; J2765; J2795; J3010; J7030; J7120